=== PATIENT | female | born 1960 | race Two or more races ===

== ENCOUNTER 2023-10-03 11:22 | Outpatient (REF) | payer BC, SELFPAY | END 2023-10-03 11:23 | disposition home or self-care (01) | LOC: HO.CHCLNP 11:22 | PROVIDERS: Visit Provider Internal Medicine | DX: R35.0 Frequency of micturition (principal) | CPT/HCPCS: 87086 ==

== ENCOUNTER 2023-11-06 08:36 | Outpatient (REF) | payer BC, SELFPAY ==
[2023-11-06 15:06] LABS: Estimated Average Glucose 123 mg/dL; Hemoglobin A1c % 5.9 % (<6.0)
[2023-11-06 15:20] LABS: Cholesterol 129 mg/dL (<200); HDL Cholesterol 51 mg/dL (>40); LDL Cholesterol Calculated 62 mg/dL (<100); Triglycerides 80 mg/dL (<150)
== END 2023-11-06 08:37 | disposition home or self-care (01) ==
LOC: HO.CHCLDS 08:36
PROVIDERS: Visit Provider Pediatrics
DX: E78.5 Hyperlipidemia, unspecified (principal)
CPT/HCPCS: 36415; 80061; 82550; 83036

== ENCOUNTER 2025-03-12 09:17 | Outpatient (REF) | payer BC, SELFPAY ==
--- OUTSIDE RECORDS SUMMARY | 2025-03-12 09:22 | XMS_ITS | Encounter Summary ---
Author Organization [email or web address] Address [address] [place] [address] [address] [address] Care Team Providers Care Concessions Manager Name Role Phone Ely Travis MD Primary Care Provider Reason for Visit * Reason Onset Date Comments Nurse Triage 02/20/2023 Encounter Details Date Type Department Care Team ([facility] st Contact Info) Description 02/20/2023 Telephone [facility] [address] [place], [place] [id number] Ely Travis MD [address] [place] [address] Nurse Triage Social History Tobacco Use Types Packs/Day Years Used Date Smoking Tobacco: Former Cigarettes 0.3 11.5 S tarted: 2014 Passive Smoke Exposure: Past Smokeless Tobacco: Never Alcohol Use Standard Drinks/Week Comments Never 0 (1 standard drink = 0.6 oz pur e alcohol) Comments Unknown Sex and Gender Information Value Date Recorded Sex Assigned at Female 06/25/2022 10:39 AM EDT Legal Sex Female 10:39 AM EDT Gender Identity Female 06/25/2022 10:39 AM EDT Sexual Orientation Straight 06/25/2022 10 :39 AM EDT documented as of this encounter Miscellaneous Notes * Telephone Encounter - Magda Goddard RN - 02/20/2023 1:59 PM EDT Triage call Pt reports left knee swollen and painful. Neg for redness or warmth to touch. Pt reports this started 3 weeks ago. Pt is able to walk and sometimes has a limp Pt is taking tylenol and ibuprofen. Tylenol doesn't help the pain but, ibuprofen does. Pt does report ice and heat help as well. Apt with PCP 02/28/23 @ 315pm. Insurance is verified as active prior to booking. Protocol Used: Knee Pain (Adult) Protocol-Based Disposition: See in Office or Video Visit within 3 Days Video visit offer not recorded Positive Triage Questions: * Moderate pain (e.g., symptoms interfere with work or school, limping) and present > 3 days * Swollen knee joint (no fever or redness) * Patient wants to be seen * All higher-acuity triage questions were negative Care Advice Discussed: * Reassurance and Education - Knee Pain * Pain Medicines * Pain Medicines - Extra Notes and Warnings * Reasons To Call Back - Moderate pain (e.g., limping) lasts more than 3 days - Mild pain lasts more than 7 days - Signs of infection occur (e.g., spreading redness, warmth, fever) - You become worse * Use a Cold Pack for Pain * Use Heat on Area After 48 Hours * Telephone Encounter - Alissa Mckenzie - 02/20/2023 1:34 PM EDT Symptom: Knee Pain and swelling - (left) and left hand pinky swollen Outcome: Schedule an urgent appointment (within 1 hour) or talk to a nurse or provider soon Reason: Trouble walking The caller accepted this outcome documented in this encounter Plan of Treatment Not on file documented as of this encounter Visit Diagnoses Not on filedocumented in this encounter Additional Health Concerns Assessment Noted Time PHQ-9 Depression Total Score: 3 09/05/19 23 8:44 AM EST documented as of this encounter Care Teams Concessions Manager Relationship Specialty Start Date End Date Ely Travis MD [address] [place] [address] PCP - General Family Medicine 10/19/21 documented as of this encounter
--- OUTSIDE RECORDS SUMMARY | 2025-03-12 09:22 | XMS_ITS | Clinical Summary ---
Author Organization [facility] Address [address] [place] [address] Phone Care Team Providers Care Medical Manager Name Role Phone Oskar Travis MD Primary Care Provider [phone] Social History Tobacco Use Types Packs/Day Years Used Date Smoking Tobacco: Never Assessed Comments Unknown Sex and Gender Information Value Date Recorded Sex Assigned at Female 10/12/2024 9:15 AM EST Legal Sex Female 1:34 AM EST Gender Identity Female 10/12/2024 9:15 AM EST Sexual Orientation Straight 10/12/2024 9: 15 AM EST Plan of Treatment Health Maintenance Due Date Last Done Comments DTaP,Tdap,and Td Vaccines (1 - Tdap) 1981 Cervical Cancer Screening: P ap Smear 12/04/1983 Pneumococcal Vaccine: 50+ Years (1 of 1 - PCV) 2012 Colorectal Cancer Screening: Colonoscopy 07/29/2022 HIV Screening 07/29/2022 Hepatitis C Screening 07/29/2022 Social Influencers of Health Screening 07/29/2022 COVID-19 Vaccine (3 - 2023-2 5 season) 2024 06/23/2021, 06/02/2021 Depression Screening 08/26/2024 Influenza Vaccine (#1) 2025 Breast Cancer Screening 04/06/2026 04/06/20 24, 03/01/2023, 11/07/2021 Cholesterol Screening (Lipid Panel) 11/05/2028 11/06/2023 Osteoporosis Screening (Bone Density Screening) 11/09/2031 11/08/2021 RSV Immunization Adult Patients (1 - 1-dose 75+ series) 2037 Zoster Vaccines Completed 03/27/2022, 01/17/2022 HIB Vaccines Aged Out No longer eligi ble based on patient's age to complete this topic HPV Vaccines Aged Out No longer eligi ble based on patient's age to complete this topic Hepatitis A Vaccines Aged Out No long er eligible based on patient's age to complete this topic Hepatitis B Vaccines Aged Out No long er eligible based on patient's age to complete this topic IPV Vaccines Aged Out No longer eligi ble based on patient's age to complete this topic MMR Vaccines Aged Out No longer eligi ble based on patient's age to complete this topic Meningococcal ACWY Vaccine Aged Out N o longer eligible based on patient's age to complete this topic Meningococcal B Vaccine Aged Out No l onger eligible based on patient's age to complete this topic RSV Immunization Patients Under 20 months Aged Out No longer eligible b ased on patient's age to complete this topic Varicella Vaccines Aged Out No longer eligible based on patient's age to complete this topic Procedures Procedure Name Priority Date/Time Associated Diagnosis Comments [facility] SCREENING DIGITAL Routine 04/06/2024 12:35 PM EDT Encounter for screening mammogram for malignant neoplasm of breast [facility] DEXA AXIAL SKELETON Routine 11/08/2021 7:43 AM EDT Encounter for screening for osteoporosis from Last 3 Months or Most Recently Relevant to Health Maintenance Results * [facility] SCREENING DIGITAL (04/06/2024 12:35 PM EDT) Anatomical Region Laterality Modality Mammography 04/06/2024 10:3 1 AM EDT Narrative 04/06/2024 12:[address] [facility] Diagnostic Imaging Department [address] [place] [address] [id number] Patient: TAYO PALACIOS D.O.B./Age/Sex: 1960 - 63 - F Unit#: [id number] Location/Status: SPDIMAM/REG CLI Mnemonic/Ordering Site: [facility] Ordering Physician: OSKAR TRAVIS [facility] Screening Digital - 04/06/24 - 1107 Report Status:Signed EXAM: [facility] Screening Digital EXAM DATE AND TIME: 04/06/2024 11:07 AM HISTORY: Screening. Right breast biopsy in 1988, pathology benign. COMPARISON: 03/01/23, 11/07/21, 08/05/06 TECHNIQUE: Bilateral digital breast tomosynthesis was performed in the CC and MLO projections. Computer aided detection with [employer] 3D 3.1 was employed. TISSUE DENSITY: c. The breasts are heterogeneously dense, which may obscure small masses. FINDINGS: A circumscribed nodule is again seen in the anterior 9 to 10:00 position of the right breast, very close to the skin line. It has equivocally increased in size, now approximately 9 mm in diameter compared to 7 to 8 mm previously. No associated microcalcifications are seen. Targeted ultrasound is recommended for further assessment. No grouped microcalcifications or areas of architectural distortion are seen. The skin and vascularity are unremarkable. IMPRESSION: 1. Equivocal increase in size of a small nodule in the anterior right breast, for which targeted ultrasound is recommended. The patient will be called back. 2. Stable mammographic appearance of the left breast. No evidence of malignancy is seen. BI-RADS: Category 0: Incomplete - Need Additional Imaging Evaluation RECOMMENDATION(S): 1: Ultrasound follow-up RIGHT Dictating Physician: SERGIO TURNER MD Electronically Signed by: SERGIO TURNER MD Dic Date/Time: 04/06/24 1233 Sign date/Time: 04/06/24 1235 Procedure Note Sergio Turner MD - 06/10/2024 [facility] Diagnostic Imaging Department [address] [place] [id number] Patient: EDITH PALACIOSERIE /Age/Sex: 1960 - 63 - F Unit#: [id number] Location/Status: SPDIMAM/REG CLI Mnemonic/Ordering Site: [facility] Ordering Physician: OSKAR TRAVIS [facility] Screening Digital - 04/06/24 - 1107 Report Status:Signed EXAM: [facility] Screening Digital EXAM DATE AND TIME: 04/06/2024 11:07 AM HISTORY: Screening. Right breast biopsy in 1988, pathology benign. COMPARISON: 03/01/23, 11/07/21, 08/05/06 TECHNIQUE: Bilateral digital breast tomosynthesis was performed in the CCand MLO projections. Computer aided detection with [employer] 3D 3.1was employed. TISSUE DENSITY: c. The breasts are heterogeneously dense, which mayobscure small masses. FINDINGS: A circumscribed nodule is again seen in the anterior 9 to 10:00 positionof the right breast, very close to the skin line. It has equivocally increased insize, now approximately 9 mm in diameter compared to 7 to 8 mm previously. No associated microcalcifications are seen. Targeted ultrasound isrecommended for further assessment. No grouped microcalcifications or areas of architectural distortion areseen. The skin and vascularity are unremarkable. IMPRESSION: 1. Equivocal increase in size of a small nodule in the anterior rightbreast, for which targeted ultrasound is recommended. The patient will be calledback. 2. Stable mammographic appearance of the left breast. No evidence ofmalignancy is seen. BI-RADS: Category 0: Incomplete - Need Additional Imaging Evaluation RECOMMENDATION(S): 1: Ultrasound follow-up RIGHT Dictating Physician: SERGIO TURNER MD Electronically Signed by: SERGIO TURNER MD Dic Date/Time: 04/06/24 1233 Sign date/Time: 04/06/24 1235 us Oskar Travis MD IMG BI PROCEDURES Final Resul t * [facility] DEXA AXIAL SKELETON (11/08/2021 7:43 AM EDT) Anatomical Region Laterality Modality Mammography 11/07/2021 2:40 PM EDT Narrative 11/08/2021 7:[address] [facility] Diagnostic Imaging Department [address] [place] [address] Patient: PALACIOSTAYO /Age/Sex: 1960 - 60 - F Unit#: [id number] [facility] Ordering Physician: OSKAR TRAVIS [facility] Dexa Axial Skeleton - 11/07/21 - 2529 HISTORY: The patient is a 60-year-old postmenopausal female smoker with clinical concern for metabolic bone disease. FINDINGS: Dual energy x-ray absorptiometry of the lumbar spine and femurs is performed. The mean bone mineral density at L1-L4 is 0.863 gm/cm2 which is 73% of that of young normals and 86% of that of age matched controls. This yields a T-score of -2.6 and a Z-score of -1.2 which is diagnostic of osteoporosis. The mean bone mineral density of the femurs bilaterally is 0.763 gm/cm2 which is 76% of that of young normals and 88% of that of age matched controls. This yields a T-score of -1.9 and a Z-score of -0.8 which is diagnostic of osteopenia. IMPRESSION: 1. Osteoporosis. 2. FRAX analysis yields a 10-year probability of major osteoporotic fracture of 5.4% and a 10-year probability of hip fracture of 1.1%. Code 69921 Dictating Physician: MARYLOU VAN MD Electronically Signed by: MARYLOU VAN MD Dic Date/Time: 11/08/21741 Sign date/Time: 11/08/21742 Procedure Note Marylou Van MD - 08/15/2022 [facility] Diagnostic Imaging Department [address] [place] [address] Patient: TAYO PALACIOS /Age/Sex: 1960 - 60 - F Unit#: [id number] [facility] Ordering Physician: OSKAR TRAVIS [facility] Dexa Axial Skeleton - 11/07/21 - 0787 HISTORY: The patient is a 60-year-old postmenopausal female smoker with clinical concern for metabolic bone disease. FINDINGS: Dual energy x-ray absorptiometry of the lumbar spine and femursis performed. The mean bone mineral density at L1-L4 is 0.863 gm/cm2 which is73% of that of young normals and 86% of that of age matched controls. Thisyields a T-score of -2.6 and a Z-score of -1.2 which is diagnostic ofosteoporosis. The mean bone mineral density of the femurs bilaterally is 0.763 gm/cf5gjcpd is 76% of that of young normals and 88% of that of age matched controls.This yields a T-score of -1.9 and a Z-score of -0.8 which is diagnostic of osteopenia. IMPRESSION: 1. Osteoporosis. 2. FRAX analysis yields a 10-year probability of major osteoporoticfracture of 5.4% and a 10-year probability of hip fracture of 1.1%. Code 96545 Dictating Physician: MARYLOU VAN MD Electronically Signed by: MARYLOU VAN MD Dic Date/Time: 11/08/2142 Sign date/Time: 11/08/21742 Oskar Travis MD IMG BI PROCEDURES Final Resul t from Last 3 Months or Most Recently Relevant to [place] [phone] Care Teams Medical Manager Relationship Specialty Start Date End Date Oskar Travis MD [address] [place] [phone] PCP - General Internal Medicine 10/12/24
[2025-03-12 13:49] LABS: MANUAL DIFF FLAG NO
[2025-03-12 14:05] LABS: Hematocrit 41.9 % (37.0-47.0); Hemoglobin 14.3 g/dl (12.0-16.0); Imm Gran Abs Auto 0.01 X10*3/uL (0.00-0.03); Imm Gran Pct Auto 0.1 % (0.0-0.4); Lymphocytes Absolute Auto 2.9 X10*3/uL (1.2-4.9); Mean Corpuscular HGB Conc 34.1 g/dl (31.0-35.0); Mean Corpuscular Hemoglobin 32.8 pg (27.0-33.0); Mean Corpuscular Volume 96.1 fL (80.0-98.0); NRBC Abs Auto 0.000 X10*3/uL (0.0-0.012); NRBC Pct Auto 0.0 /100WBC (0.0-0.2); Platelet Count 219 X10*3/uL (160-400); Red Blood Count 4.36 X10*6/uL (4.20-5.50); White Blood Count 7.2 X10*3/uL (4.8-10.8)
[2025-03-12 14:21] LABS: Alanine Aminotransferase 20 U/L (0-31); Albumin Level 4.5 g/dL (3.5-5.0); Alkaline Phosphatase 64 U/L (39-117); Anion Gap 10 (12-20); Aspartate Amino Transferase 22 U/L (5-31); Blood Urea Nitrogen 13 mg/dL (9-16); Calcium 9.5 mg/dL (8.4-10.2); Carbon Dioxide 27 mmol/L (22-29); Chloride 110 mmol/L (96-108); Cholesterol 125 mg/dL (<200); Estimated Glomerular Filt Rate > 60; HDL Cholesterol 48 mg/dL (>40); Potassium 3.9 mmol/L (3.3-5.1); Sodium 143 mmol/L (135-145); Total Protein 6.7 g/dL (6.5-8.0); Triglycerides 87 mg/dL (<150)
[2025-03-12 14:47] LABS: Folate 11.6 ng/mL (> or = 4.0); Vitamin B12 542 pg/mL (200-900)
== END 2025-03-12 09:18 | disposition home or self-care (01) ==
LOC: HO.CHCLDS 09:17
PROVIDERS: Visit Provider Pediatrics
DX: R73.03 Prediabetes (principal); F32.0 Major depressive disorder, single episode, mild
CPT/HCPCS: 36415; 80048; 80061; 80076; 82306; 82607; 82746; 84443; 85025

== ENCOUNTER 2025-05-05 09:54 | Outpatient (REF) | payer BC, SELFPAY ==
--- OUTSIDE RECORDS SUMMARY | 2025-05-05 09:15 | XMS_ITS | Encounter Summary ---
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 Phone Ely Travis MD Primary Care Provider [phone] Reason for Referral * Consultation (Routine) - Pending Review Specialty Diagnoses / Procedures Referred By Alireza owens Referred To Contact Physical Therapy Diagnoses Benign paroxysmal positional vertigo, unspecified laterality Georgia Gardner MD [address] [place] [address] Phone: tel: fax: Referral ID Status Reason Start Date Expiration Date Visits Requested Visits Authorized [id number] Pending Review Specialty Services Required 05/05/2025 05/05/2026 1 1 Encounter Details Date Type Department Care Team ([facility] st Contact Info) Description 05/05/2025 9:15 AM EDT Office Visit [facility] [address] [place] [address] Georgia Gardner MD [address] [place] [address] Benign paroxysmal positional vertigo, unspecified laterality (Primary Dx); Acute sinusitis with symptoms > 10 days Social History Tobacco Use Types Packs/Day Years Used Date Smoking Tobacco: Every Day Cigarettes 0.5 11.7 Started: 2013 Passive Smoke Exposure: Current Smokeless Tobacco: Never Alcohol Use Standard Drinks/Week Comments Never 0 (1 standard drink = 0.6 oz pur e alcohol) Depression Answer Date Recorded Patient Health Questionnaire-9 Score 4 03/11/2025 Patient Health Questionnaire-9 Score 4 03/11/2025 Last PHQ-9: Questionnaire Data Not on file 0 03/11/2025 Housing Stability Answer Date Recorded What is your housing situation today? I have racquel faust 03/11/[address] you li ve. Do you have problems with any of the following? None of the above 03/11/2025 Food Insecurity Answer Date Recorded Within the past 12 months, y ou worried that your food would run out before you got money to buy more: Never True 03/11/2025 Within the past 12 months,th e food you bought just didn't last and you didn't have enough money to get more: Never True Transportation Answer Date Recorded In the past 12 months, has l ack of transportation kept you from medical appts, meetings, work or from getting things needed for daily living? No 03/11/2025 Utilities Answer Date Recorded In the past 12 months, has t he electric, gas, oil or water company threatened to shut off services in your home? No 03/11/2025 Depression Answer Date Recorded Patient Health Questionnaire-2 Score 2 03/11/2025 Internet Access Answer Date Recorded Internet Access Q1 Yes 03/11/2025 Internet Access Q2 Not on file 03/11/2025 Comments No Sex and Gender Information Value Date Recorded Sex Assigned at Female 06/25/2022 10:39 AM EDT Legal Sex Female 10:39 AM EDT Gender Identity Female 06/25/2022 10:39 AM EDT Sexual Orientation Straight 06/25/2022 10 :39 AM EDT documented as of this encounter Last Filed Vital Signs Vital Sign Reading Time Taken Comments Blood Pressure 138/69 05/05/2025 9:05 AM EDT Pulse 69 05/05/2025 9:05 AM EDT Temperature 36.6 C (97.8 F) 05/05/2025 9:05 AM EDT Respiratory Rate 20 05/05/2025 9:05 AM EDT Oxygen Saturation 98% 05/05/2025 9:05 AM EDT Inhaled Oxygen Concentration - - Weight 55.3 kg (122 lb) 05/05/2025 9:05 AM EDT Height 150.5 cm (4' 11.25 ) 05/05/2025 9:05 AM E DT Body Mass Index 24.43 05/05/2025 9:05 AM EDT documented in this encounter Progress Notes * Georgia Gardner MD - 05/05/2025 9:15 AM EDT LUCIO Saucedo is a 64 y.o. female who presents for No chief complaint on file.. HPI Note from triage reviewed: called pt to triage, spoke to pt. pt states several days duration of dizziness. pt reports has hadin the distant past and diagnosed with vertigo. pt had therapy and was given medication which eventually resolved the issue. pt denies significant illness symptoms but had a sinus infection a few weeks ago. pt denies fever, falls, vomiting, or other associated symptoms. given appt tomorrow with [facility]provider at 9:15 for exam. advised home care: rest, fluids, lie down, fall precautions, and call back as needed. pt understands and agrees with plan. insurance verified. The history is confirmed. Patient reports 2 days history of dizziness described as a sensation of room spinning when changing position in bed from ozyl-rn-cauo and when changing position from sittingto standing. This symptom last a few seconds to 1 minute. Had a similar episode in the past that was treated with physical therapy and a pill Mrs. Kassie Saucedo is also complaining of nasal congestion and facial pain that started at mid March more than 10 days ago. Treated with a course of ceftriaxone with partial improvement. Has noticed a recurrence of the symptoms described as the congestion facial pain and chills 5 days ago. Currently using Marian and Flonase without significant improvement. Problem List[1] Allergies[2] Medications Ordered Prior to Encounter[3] Review of Systems Constitutional: Negative for appetite change, chills and diaphoresis. HENT: Positive for congestion and sinus pressure. Negative for voice change. Eyes: Negative for pain and redness. Respiratory: Negative for cough and shortness of breath. Gastrointestinal: Negative for abdominal pain, anal bleeding and blood in stool. Musculoskeletal: Negative for back pain. Neurological: Positive for dizziness. OBJECTIVE Vitals: 05/05/25 0905 BP: 138/69 BP Location: Left arm Patient Position: Sitting BP Cuff Size: Adult Pulse: 69 Resp: 20 Temp: 97.8 ??F (36.6 ??C) TempSrc: Oral SpO2: 98% Weight: 122 lb (55.3 kg) Height: 4' 11.25 (1.505 m) Physical Exam Constitutional: General: She is not in acute distress. Appearance: Normal appearance. She is not ill-appearing, toxic-appearing or diaphoretic. Cardiovascular: Rate and Rhythm: Normal rate. Pulmonary: Effort: Pulmonary effort is normal. Neurological: General: No focal deficit present. Mental Status: She is alert. Comments: The Toxey-Hallpike maneuver triggered the dizziness on the right with horizontal nystagmus. Assessment/Plan Assessment/Plan Diagnoses and all orders for this visit: Benign paroxysmal positional vertigo, unspecified laterality Comments: The nature of the condition was discussed A handout of the Serena maneuver was printed and given to the patient Orders: - meclizine (Antivert) 12.5 MG tablet; Take 1 tablet (12.5 mg) by mouth if needed in the morning, at noon, and at bedtime for dizziness for up to 10 days. - CBC auto differential; Future - Basic Metabolic Panel; Future - Referral to Physical Therapy; Future Acute sinusitis with symptoms > 10 days Comments: Patient will be contacted with the results of the workup Advised to continue with Marian and Flonase as directed. Orders: - doxycycline (Vibra-Tabs) 100 MG tablet; Take 1 tablet (100 mg) by mouth 2 times daily for 10 days. Take with a full glass of water and do not lie down for at least 30 minutes after. - XR Paranasal Sinuess 3+ Views; Future - CBC auto differential; Future - Basic Metabolic Panel; Future [1] Patient Active Problem List Diagnosis Dyslipidemia Allergic rhinitis Prediabetes Age-related osteoporosis without current pathological fracture Depression, unspecified Upper respiratory tract infection GRIS (generalized anxiety disorder) Nasal congestion Chronic left-sided low back pain without sciatica Heel pain, chronic, right [2] Allergies Allergen Reactions Penicillin G [3] Current Outpatient Medications on File Prior to Visit Medication Sig Dispense Refill alendronate (Fosamax) 70 MG tablet Take 1 tablet (70 mg) by mouth every 7 (seven) days. Take in themorning with a full glass of water, on an empty stomach, and do not take anything else by mouth or lie down for the next 30 min. 12 tablet 3 atorvastatin (Lipitor) 20 MG tablet Take 1 tablet (20 mg) by mouth in the morning. 90 tablet 2 biotin 5 MG capsule Take 1 capsule (5 mg) by mouth Once per day. 30 capsule 11 Calcium Citrate-Vitamin D (RA Calcium Citrate Plus Vit D) 315-5 MG-MCG tablet Take 1 tablet by mouth in the morning. 90 tablet 3 fexofenadine (Marian) 180 MG tablet Take 1 tablet (180 mg) by mouth Once per day. 30 tablet 11 FLUoxetine (PROzac) 20 MG capsule Take 1 capsule (20 mg) by mouth in the morning. 30 capsule 5 hydrOXYzine pamoate (Vistaril) 25 MG capsule Take 1 capsule (25 mg) by mouth every 8 (eight) hours if needed for anxiety. 90 capsule 3 lidocaine (Lidoderm) 5 % patch Apply 1 patch topically in the morning. Remove & discard patch within 12 hours or as directed by MD. 30 patch 1 lidocaine-prilocaine (Emla) 2.5-2.5 % cream APPLY TO THE AFFECTED AREA(S) FOR ONE DOSE 30 g 3 nicotine (Nicoderm CQ) 21 MG/24HR patch Place 1 patch on the skin 1 (one) time each day at the sametime. 30 patch 1 No current facility-administered medications on file prior to visit. documented in this encounter Miscellaneous Notes * Patient Education Note - Georgia Gardner MD - 05/05/2025 1:35 PM EDT Images from the original note were not included. Patient Education Table of Contents How to Perform the Serena Maneuver To view videos and all your education online visit, [email or web address] or scan this QR code with your smartphone. Access to this content will in one year. How to Perform the Serena Maneuver The Serena maneuver is an exercise that relieves symptoms of vertigo. Vertigo is the feeling that you or your surroundings are moving when they are not. When you feel vertigo, you may feel like the room is spinning and may have trouble walking. The Serena maneuver is used for a type of vertigo causedby a calcium deposit in a part of the inner ear. The maneuver involves changing head positions to help the deposit move out of the area. You can do this maneuver at home whenever you have symptoms of vertigo. You can repeat it in 24 hours if your vertigo has not gone away. Even though the Serena maneuver may relieve your vertigo for a few weeks, it is possible that your symptoms will return. This maneuver relieves vertigo, but it does not relieve dizziness. What are the risks? If it is done correctly, the Serena maneuver is considered safe. Sometimes it can lead to dizziness or nausea that goes away after a short time. If you develop other symptoms?such as changes in vision, weakness, or numbness?stop doing the maneuver and call your health care provider. Supplies needed: A bed or table. A pillow. How to do the Serena maneuver 1. Sit on the edge of a bed or table with your back straight and your legs extended or hanging overthe edge of the bed or table. Turn your head long-term toward the affected ear or side as told by your health care provider. Lie backward quickly with your head turned until you are lying flat on your back. Your head should dangle (head-hanging position). You may want to position a pillow under your shoulders. Hold this position for at least 30 seconds. If you feel dizzy or have symptoms of vertigo, continueto hold the position until the symptoms stop. Turn your head to the opposite direction until your unaffected ear is facing down. Your head shouldcontinue to dangle. Hold this position for at least 30 seconds. If you feel dizzy or have symptoms of vertigo, continueto hold the position until the symptoms stop. Turn your whole body to the same side as your head so that you are positioned on your side. Your head will now be nearly facedown and no longer needs to dangle. Hold for at least 30 seconds. If you feel dizzy or have symptoms of vertigo, continue to hold the position until the symptoms stop. Sit back up. You can repeat the maneuver in 24 hours if your vertigo does not go away. Follow these instructions at home: For 24 hours after doing the Serena maneuver: Keep your head in an upright position. When lying down to sleep or rest, keep your head raised (elevated) with two or more pillows. Avoid excessive neck movements. Activity Do not drive or use machinery if you feel dizzy. After doing the Serena maneuver, return to your normal activities as told by your health care provider. Ask your health care provider what activities are safe for you. General instructions Drink enough fluid to keep your urine pale yellow. Do not drink alcohol. Take gyrr-wut-scbshxh and prescription medicines only as told by your health care provider. Keep all follow-up visits. This is important. Preventing vertigo symptoms Ask your health care provider if there is anything you should do at home to prevent vertigo. He or she may recommend that you: Keep your head elevated with two or more pillows while you sleep. Do not sleep on the side of your affected ear. Get up slowly from bed. Avoid sudden movements during the day. Avoid extreme head positions or movement, such as looking up or bending over. Contact a health care provider if: Your vertigo gets worse. You have other symptoms, including: ? Nausea. ? Vomiting. ? Headache. Get help right away if you: Have vision changes. Have a headache or neck pain that is severe or getting worse. Cannot stop vomiting. Have new numbness or weakness in any part of your body. These symptoms may represent a serious problem that is an emergency. Do not wait to see if the symptoms will go away. Get medical help right away. Call your local emergency services (911 in the [place] Do not drive yourself to the hospital. Summary Vertigo is the feeling that you or your surroundings are moving when they are not. The Serena maneuver is an exercise that relieves symptoms of vertigo. If the Serena maneuver is done correctly, it is considered safe. This information is not intended to replace advice given to you by your health care provider. Make sure you discuss any questions you have with your health care provider. Document Released: 2014-08-17 Document Updated: 2024-05-08 Document Reviewed: 2024-05-08 Elsevier Patient Education ? 2024 [employer] * Patient Education Note - Georgia Gardner MD - 05/05/2025 1:34 PM EDT Images from the original note were not included. Patient Education Table of Contents How to Perform the Serena Maneuver To view videos and all your education online visit, [email or web address] or scan this QR code with your smartphone. Access to this content will in one year. How to Perform the Serena Maneuver The Serena maneuver is an exercise that relieves symptoms of vertigo. Vertigo is the feeling that you or your surroundings are moving when they are not. When you feel vertigo, you may feel like the room is spinning and may have trouble walking. The Serena maneuver is used for a type of vertigo causedby a calcium deposit in a part of the inner ear. The maneuver involves changing head positions to help the deposit move out of the area. You can do this maneuver at home whenever you have symptoms of vertigo. You can repeat it in 24 hours if your vertigo has not gone away. Even though the Serena maneuver may relieve your vertigo for a few weeks, it is possible that your symptoms will return. This maneuver relieves vertigo, but it does not relieve dizziness. What are the risks? If it is done correctly, the Serena maneuver is considered safe. Sometimes it can lead to dizziness or nausea that goes away after a short time. If you develop other symptoms?such as changes in vision, weakness, or numbness?stop doing the maneuver and call your health care provider. Supplies needed: A bed or table. A pillow. How to do the Serena maneuver 1. Sit on the edge of a bed or table with your back straight and your legs extended or hanging overthe edge of the bed or table. Turn your head long-term toward the affected ear or side as told by your health care provider. Lie backward quickly with your head turned until you are lying flat on your back. Your head should dangle (head-hanging position). You may want to position a pillow under your shoulders. Hold this position for at least 30 seconds. If you feel dizzy or have symptoms of vertigo, continueto hold the position until the symptoms stop. Turn your head to the opposite direction until your unaffected ear is facing down. Your head shouldcontinue to dangle. Hold this position for at least 30 seconds. If you feel dizzy or have symptoms of vertigo, continueto hold the position until the symptoms stop. Turn your whole body to the same side as your head so that you are positioned on your side. Your head will now be nearly facedown and no longer needs to dangle. Hold for at least 30 seconds. If you feel dizzy or have symptoms of vertigo, continue to hold the position until the symptoms stop. Sit back up. You can repeat the maneuver in 24 hours if your vertigo does not go away. Follow these instructions at home: For 24 hours after doing the Serena maneuver: Keep your head in an upright position. When lying down to sleep or rest, keep your head raised (elevated) with two or more pillows. Avoid excessive neck movements. Activity Do not drive or use machinery if you feel dizzy. After doing the Serena maneuver, return to your normal activities as told by your health care provider. Ask your health care provider what activities are safe for you. General instructions Drink enough fluid to keep your urine pale yellow. Do not drink alcohol. Take ufrn-tnl-kwpueuj and prescription medicines only as told by your health care provider. Keep all follow-up visits. This is important. Preventing vertigo symptoms Ask your health care provider if there is anything you should do at home to prevent vertigo. He or she may recommend that you: Keep your head elevated with two or more pillows while you sleep. Do not sleep on the side of your affected ear. Get up slowly from bed. Avoid sudden movements during the day. Avoid extreme head positions or movement, such as looking up or bending over. Contact a health care provider if: Your vertigo gets worse. You have other symptoms, including: ? Nausea. ? Vomiting. ? Headache. Get help right away if you: Have vision changes. Have a headache or neck pain that is severe or getting worse. Cannot stop vomiting. Have new numbness or weakness in any part of your body. These symptoms may represent a serious problem that is an emergency. Do not wait to see if the symptoms will go away. Get medical help right away. Call your local emergency services (911 in the [place] Do not drive yourself to the hospital. Summary Vertigo is the feeling that you or your surroundings are moving when they are not. The Serena maneuver is an exercise that relieves symptoms of vertigo. If the Serena maneuver is done correctly, it is considered safe. This information is not intended to replace advice given to you by your health care provider. Make sure you discuss any questions you have with your health care provider. Document Released: 2014-08-17 Document Updated: 2024-05-08 Document Reviewed: 2024-05-08 [employer] Patient Education ? 2024 [employer]. * Patient Education Note - Georgia Gardner MD - 05/05/2025 1:33 PM EDT Images from the original note were not included. Patient Education Table of Contents How to Perform the Serena Maneuver To view videos and all your education online visit, [email or web address] [email or web address] or scan this QR code with your smartphone. Access to this content will in one year. How to Perform the Serena Maneuver The Serena maneuver is an exercise that relieves symptoms of vertigo. Vertigo is the feeling that you or your surroundings are moving when they are not. When you feel vertigo, you may feel like the room is spinning and may have trouble walking. The Serena maneuver is used for a type of vertigo causedby a calcium deposit in a part of the inner ear. The maneuver involves changing head positions to help the deposit move out of the area. You can do this maneuver at home whenever you have symptoms of vertigo. You can repeat it in 24 hours if your vertigo has not gone away. Even though the Serena maneuver may relieve your vertigo for a few weeks, it is possible that your symptoms will return. This maneuver relieves vertigo, but it does not relieve dizziness. What are the risks? If it is done correctly, the Serena maneuver is considered safe. Sometimes it can lead to dizziness or nausea that goes away after a short time. If you develop other symptoms?such as changes in vision, weakness, or numbness?stop doing the maneuver and call your health care provider. Supplies needed: A bed or table. A pillow. How to do the Serena maneuver 1. Sit on the edge of a bed or table with your back straight and your legs extended or hanging overthe edge of the bed or table. Turn your head long-term toward the affected ear or side as told by your health care provider. Lie backward quickly with your head turned until you are lying flat on your back. Your head should dangle (head-hanging position). You may want to position a pillow under your shoulders. Hold this position for at least 30 seconds. If you feel dizzy or have symptoms of vertigo, continueto hold the position until the symptoms stop. Turn your head to the opposite direction until your unaffected ear is facing down. Your head shouldcontinue to dangle. Hold this position for at least 30 seconds. If you feel dizzy or have symptoms of vertigo, continueto hold the position until the symptoms stop. Turn your whole body to the same side as your head so that you are positioned on your side. Your head will now be nearly facedown and no longer needs to dangle. Hold for at least 30 seconds. If you feel dizzy or have symptoms of vertigo, continue to hold the position until the symptoms stop. Sit back up. You can repeat the maneuver in 24 hours if your vertigo does not go away. Follow these instructions at home: For 24 hours after doing the Serena maneuver: Keep your head in an upright position. When lying down to sleep or rest, keep your head raised (elevated) with two or more pillows. Avoid excessive neck movements. Activity Do not drive or use machinery if you feel dizzy. After doing the Serena maneuver, return to your normal activities as told by your health care provider. Ask your health care provider what activities are safe for you. General instructions Drink enough fluid to keep your urine pale yellow. Do not drink alcohol. Take oylg-hzv-pmcifke and prescription medicines only as told by your health care provider. Keep all follow-up visits. This is important. Preventing vertigo symptoms Ask your health care provider if there is anything you should do at home to prevent vertigo. He or she may recommend that you: Keep your head elevated with two or more pillows while you sleep. Do not sleep on the side of your affected ear. Get up slowly from bed. Avoid sudden movements during the day. Avoid extreme head positions or movement, such as looking up or bending over. Contact a health care provider if: Your vertigo gets worse. You have other symptoms, including: ? Nausea. ? Vomiting. ? Headache. Get help right away if you: Have vision changes. Have a headache or neck pain that is severe or getting worse. Cannot stop vomiting. Have new numbness or weakness in any part of your body. These symptoms may represent a serious problem that is an emergency. Do not wait to see if the symptoms will go away. Get medical help right away. Call your local emergency services (911 in the [place] Do not drive yourself to the hospital. Summary Vertigo is the feeling that you or your surroundings are moving when they are not. The Serena maneuver is an exercise that relieves symptoms of vertigo. If the Serena maneuver is done correctly, it is considered safe. This information is not intended to replace advice given to you by your health care provider. Make sure you discuss any questions you have with your health care provider. Document Released: 2014-08-17 Document Updated: 2024-05-08 Document Reviewed: 2024-05-08 [employer] Patient Education ? 2024 [employer]. documented in this encounter Plan of Treatment Scheduled Orders Name Type Priority Associated Diagnoses Orde r Schedule XR Paranasal Sinuess 3+ Views Imaging Routine Acute sinusitis with symptoms > 10 days Expected: 05/05/2025, Expires: 05/05/2026 CBC auto differential Lab Routine Benign paroxysmal positional vertigo, unspecified laterality Acute sinusitis with symptoms > 10 days Expected: 05/05/2025 (Approximate), Expires: 05/05/2026 Basic Metabolic Panel Lab Routine Benign paroxysmal positional vertigo, unspecified laterality Acute sinusitis with symptoms > 10 days Expected: 05/05/2025 (Approximate), Expires: 05/05/2026 Scheduled Referrals Name Type Priority Associated Diagnoses Orde r Schedule Referral to Physical Therapy Outpatient Referral Routine Benign paroxysmal positional vertigo, unspecified laterality Expected: 05/05/2025 (Approximate), Expires: 05/05/2026 documented as of this encounter Visit Diagnoses Diagnosis Benign paroxysmal positional vertigo, unspecified laterality- Primary Acute sinusitis with symptoms > 10 days documented in this encounter Additional Health Concerns Assessment Noted Time PHQ-9 Depression Total Score: 4 03/11/20 25 10:08 AM EDT documented as of this encounter Care Teams Die Repair Machinist Relationship Specialty Start Date End Date Ely Travis MD [address] [place] [address] PCP - General Family Medicine 10/19/21 documented as of this encounter
--- OUTSIDE RECORDS SUMMARY | 2025-05-05 11:57 | XMS_ITS | Encounter Summary ---
Author Organization [employer] Address [address] [place] [address] [address] [place] [address] Care Team Providers Care Manager Gas Name Role Phone Ely Travis MD Primary Care Provider [phone] Encounter Details Date Type Department Care Team ([facility] st Contact Info) Description 04/10/2024 Orders Only [facility] [address] [place] [address] Provider, MD Krystal Social History Tobacco Use Types Packs/Day Years Used Date Smoking Tobacco: Every Day Cigarettes 0.3 11.7 Started: 2013 Passive Smoke Exposure: Current Smokeless Tobacco: Never Alcohol Use Standard Drinks/Week Comments Never 0 (1 standard drink = 0.6 oz pur e alcohol) Depression Answer Date Recorded Patient Health Questionnaire-9 Score 8 11/05/2023 Patient Health Questionnaire-9 Score 8 11/05/2023 Last PHQ-9: Questionnaire Data Not on file 0 11/05/2023 Depression Answer Date Recorded Patient Health Questionnaire-2 Score 3 11/05/2023 Comments No Sex and Gender Information Value Date Recorded Sex Assigned at Female 06/25/2022 10:39 AM EDT Legal Sex Female 10:39 AM EDT Gender Identity Female 06/25/2022 10:39 AM EDT Sexual Orientation Straight 06/25/2022 10 :39 AM EDT documented as of this encounter Plan of Treatment Not on file documented as of this encounter Procedures Procedure Name Priority Date/Time Associated Diagnosis Comments UNILAT BREAST US LIMITED Routine 04/09/2024 11:15 AM EDT documented in this encounter Results * UNILAT BREAST US LIMITED (04/09/2024 11:15 AM EDT) Anatomical Region Laterality Modality Breast Left Ultrasound us Historical Provider MD MADRID US PROCEDURES Final R esult documented in this encounter Visit Diagnoses Not on filedocumented in this encounter Additional Health Concerns Assessment Noted Time PHQ-9 Depression Total Score: 8 11/05/19 24 11:48 AM EDT documented as of this encounter Care Teams Manager Gas Relationship Specialty Start Date End Date Ely Travis MD [address] [place] [id number] PCP - General Family Medicine 10/19/21 documented as of this encounter
--- OUTSIDE RECORDS SUMMARY | 2025-05-05 11:57 | XMS_ITS | Encounter Summary ---
Author Organization [employer] Address [address] [facility] [address] [place] [address] Care Team Providers Care Tutoring Clinician Name Role Phone Ely Travis MD Primary Care Provider [phone] Reason for Visit * Reason Onset Date Comments Nurse Triage 05/04/2025 Encounter Details Date Type Department Care Team ([facility] st Contact Info) Description 05/04/2025 Telephone [facility] CHC MED & PEDS [address] [place], [place] [phone] Ely Travis MD [address] [place] [address] Nurse Triage Social History Tobacco Use Types [...] your housing situation today? I have racquel christianne 03/11/[address] you li [...] encounter Miscellaneous Notes * Telephone Encounter - Lis Walden RN - 05/04/2025 8:58 AM EDT called pt to triage, spoke to pt. pt states several days duration of dizziness. pt reports has had in the distant past and diagnosed with vertigo. pt had therapy and was given medication which eventually resolved the issue. pt denies significant illness symptoms but had a sinus infection a few weeks ago. pt denies fever, falls, vomiting, or other associated symptoms. given appt tomorrow with [facility] provider at 9:15 for exam. advised home care: rest, fluids, lie down, fall precautions, and call back as needed. pt understands and agrees with plan. insurance verified. Protocol Used: Dizziness (Adult) Protocol-Based Disposition: See in Office or Video Visit within 3 Days Positive Triage Question: * Mild dizziness (e.g., walking normally) and has NOT been evaluated by physician for this (Exception: Dizziness caused by heat exposure, sudden standing, or poor fluid intake.) * All higher-acuity triage questions were negative Care Advice Discussed: * Reassurance and Education - Dizziness From Not Drinking Enough Liquids * Drink Fluids * Lie Down and Rest * Cool Off * Prevention - Dizziness * Reasons To Call Back - After 2 hours of rest and fluids and you are still feeling dizzy - You pass out (faint) or are too weak to stand - You become worse * Sit Up Slowly Before Standing * Drink Fluids * Lie Down and Rest * Cool Off * Prevention - Dizziness * Telephone Encounter - Ishmael Hurtado - 05/04/2025 8:32 AM EDT Symptom: Dizziness Outcome: Schedule an appointment to be seen within 24 hours Reason: Caller denied all higher acuity questions The caller accepted this outcome. Contact pt at [phone] documented in this encounter Plan of Treatment Not on file documented as of this encounter Visit Diagnoses Not on filedocumented in this encounter Additional Health Concerns Assessment Noted Time PHQ-9 Depression Total Score: 4 03/11/20 25 10:08 AM EDT documented as of this encounter Care Teams Tutoring Clinician Relationship Specialty Start Date End Date Ely Travis MD [address] [place] [address] PCP - General Family Medicine 10/19/21 documented as of this encounter
--- OUTSIDE RECORDS SUMMARY | 2025-05-05 11:57 | XMS_ITS | Encounter Summary ---
Author Organization [employer] Address [address] [facility] [address] [place] [address] Care Team Providers Care Entry Level Management Name Role Phone Ely Travis MD Primary Care Provider [phone] Encounter Details Date Type Department Care Team (Latest Contact Info) Description 05/04/2025 Travel Social History Tobacco Use Types Packs/Day Years [...] documented as of this encounter Care Teams Entry Level Management Relationship Specialty Start Date End Date Ely Travis MD [address] [place] [address] PCP - General Family Medicine 10/19/21 documented as of this encounter
--- OUTSIDE RECORDS SUMMARY | 2025-05-05 11:57 | XMS_ITS | Encounter Summary ---
Author Organization [employer] Address [address] [place] [address] [address] [place] [address] Care Team Providers Care Sound Assistant Name Role Phone Ely Travis MD Primary Care Provider [phone] Encounter Details Date Type Department Care Team ([facility] st Contact Info) Description 04/08/2024 Orders Only [facility] [address] [place] [address] Provider, MD Krystal Social History Tobacco Use [...] Procedure Name Priority Date/Time Associated Diagnosis Comments BI MAMMOGRAM SCREENING BILATERAL Routine 04/06/2024 11:48 AM EDT documented in this encounter Results * BI Mammogram Screening Bilateral (04/06/2024 11:48 AM EDT) Anatomical Region Laterality Modality Breast Bilateral Mammography us Historical Provider MD MADRID BI PROCEDURES Final R esult documented in this encounter Visit Diagnoses Not on filedocumented in this encounter Additional Health Concerns Assessment Noted Time PHQ-9 Depression Total Score: 8 11/05/19 24 11:48 AM EDT documented as of this encounter Care Teams Sound Assistant Relationship Specialty Start Date End Date Ely Travis MD [address] [place] [phone] PCP - General Family Medicine 10/19/21 documented as of this encounter
--- OUTSIDE RECORDS SUMMARY | 2025-05-05 11:57 | XMS_ITS | Encounter Summary ---
Author Organization [employer] Address [address] [place] [address] Care Team Providers Care Business Improvement Manager Name Role Phone Ely Travis MD Primary Care Provider [phone] Reason for Visit * Reason Onset Date Comments Results 08/21/2022 Encounter Details Date Type Department Care Team ([facility] st Contact Info) Description 08/21/2022 Telephone [facility] CHC MED & PEDS [address] [place], [place] [phone] Ely Travis MD [address] [place] [address] Results Social History Tobacco Use Types Packs/Day Years Used Date Smoking Tobacco: Never Assessed Comments Unknown Sex and Gender Information Value Date Recorded Sex Assigned at Female 06/25/2022 10:39 AM EDT Legal Sex Female 10:39 AM EDT Gender Identity Female 06/25/2022 10:39 AM EDT Sexual Orientation Straight 06/25/2022 10 :39 AM EDT COVID-19 Exposure Response Date Recorded In the last 10 days, have yo u been in contact with someone who was confirmed or suspected to have Coronavirus/COVID-19? No / Unsure 08/06/2022 8:55 AM EST documented as of this encounter Miscellaneous Notes * Telephone Encounter - Lise Cummings - 08/21/2022 10:13 AM EST Tc from pt requesting lab results . documented in this encounter Plan of Treatment Not on file documented as of this encounter Visit Diagnoses Not on filedocumented in this encounter Care Teams Business Improvement Manager Relationship Specialty Start Date End Date Ely Travis MD [address] [place] [id number] PCP - General Family Medicine 10/19/21 documented as of this encounter
--- OUTSIDE RECORDS SUMMARY | 2025-05-05 11:57 | XMS_ITS | Encounter Summary ---
Author Organization [employer] Address [address] [facility] [place] [address] [address] Care Team Providers Care Associate Relations Specialist Name Role Phone Ely Travis MD Primary Care Provider [phone] Reason for Visit * Reason Onset Date Comments Nurse Triage 12/23/2023 Encounter Details Date Type Department Care Team ([facility] st Contact Info) Description 12/23/2023 Telephone [facility] MEDICINE [address] [place] [address] Ely Travis MD [address] [place] [id number] Nurse Triage Social History Tobacco Use Types Packs/Day Years Used Date Smoking Tobacco: Former Cigarettes 0.3 11.7 S tarted: 2014 Passive Smoke Exposure: Past [...] Telephone Encounter - Magda Goddard RN - 12/23/2023 3:54 PM EDT Triage call Pt reports getting up from sitting in an out door chair and feeling a pinch . Pt has been having left leg pain ever since, Ambulating with pain and limp. Pt has been using ice/heat, ibuprofen/tylenol with out relief. Pt denies numbness/tingling . Pt would like to see provider. Pt is advised to come to [facility] , open till 800pm tonight. Pt agrees with this disposition. Home care already im plemented. Insurance is verified as active. Protocol Used: Back Injury (Adult) Protocol-Based Disposition: See in Office or Video Visit Today Video visit not offered Positive Triage Question: * Patient wants to be seen * All higher-acuity triage questions were negative Care Advice Discussed: * Reassurance and Education - Bending or Twisting Injury (Strain, Sprain) * Use a Cold Pack for Pain, Swelling, or Bruising * Use Heat on Area After 48 Hours * Avoid Heavy Lifting and Sports * Rest vs. Movement * Reasons To Call Back - Severe pain lasts over 2 hours after pain medicine and ice - Swelling or bruise becomes over 4 inches (10 cm; more than size of palm). - Pain not improving after 3 days - Pain or swelling lasts over 7 days - You become worse * Telephone Encounter - Brendon Casanova - 12/23/2023 3:35 PM EDT Symptom: Back Injury Outcome: Schedule an urgent appointment (within 1 hour) or talk to a nurse or provider soon Reason: Weakness of the leg documented in this encounter Plan of Treatment Not on file documented as of this encounter Visit Diagnoses Not on filedocumented in this encounter Additional Health Concerns Assessment Noted Time PHQ-9 Depression Total Score: 8 11/05/19 24 11:48 AM EDT documented as of this encounter Care Teams Associate Relations Specialist Relationship Specialty Start Date End Date Ely Travis MD [address] [place] [address] PCP - General Family Medicine 10/19/21 documented as of this encounter
--- OUTSIDE RECORDS SUMMARY | 2025-05-05 11:57 | XMS_ITS | Encounter Summary ---
Author Organization [employer] Address [address] [facility] [address] [place] [address] Care Team Providers Care Weight Count Operator Name Role Phone Ely Travis MD Primary Care Provider [phone] Encounter Details Date Type Department Care Team (Latest Contact Info) Description 05/05/2025 Travel Social History Tobacco Use Types Packs/Day [...] documented as of this encounter Care Teams Weight Count Operator Relationship Specialty Start Date End Date Ely Travis MD [address] [place] [address] PCP - General Family Medicine 10/19/21 documented as of this encounter
--- OUTSIDE RECORDS SUMMARY | 2025-05-05 11:57 | XMS_ITS | Encounter Summary ---
Author Organization [employer] Address [address] [place] [address] [address] [place] [address] Care Team Providers Care Air Tank Assembler Name Role Phone Ely Travis MD Primary Care Provider Reason for Visit * Reason Onset Date Comments Nurse Triage 02/20/2023 Encounter Details Date Type Department Care Team ([facility] st Contact Info) Description 02/20/2023 Telephone [facility] MED & PEDS [address] [place], [place] [phone] Ely Travis MD [address] [place] [address] Nurse Triage Social History Tobacco Use Types [...] does report ice and heat help as well . Apt with PCP 02/28/23 @ 315pm. Insurance [...] documented as of this encounter Care Teams Air Tank Assembler Relationship Specialty Start Date End Date Ely Travis MD [address] [place] [address] PCP - General Family Medicine 10/19/21 documented as of this encounter
--- OUTSIDE RECORDS SUMMARY | 2025-05-05 11:57 | XMS_ITS | Encounter Summary ---
Author Organization [employer] Address [address] [place] [address] [address] [address] Care Team Providers Care Shackler Name Role Phone Ely Travis MD Primary Care Provider [phone] Reason for Visit * Reason Comments Med Refill Encounter Details Date Type Department Care Team ([facility] Contact Info) Description 10/26/2024 Refill C [facility]S [address] [place], [place] [phone] Ely Travis MD [address] [place] [address] Social History Tobacco Use Types Packs/Day Years [...] documented as of this encounter Care Teams Shackler Relationship Specialty Start Date End Date Ely Travis MD [address] [place] [address] PCP - General Family Medicine 10/19/21 documented as of this encounter
--- OUTSIDE RECORDS SUMMARY | 2025-05-05 11:57 | XMS_ITS | Encounter Summary ---
Author Organization [employer] Address [address] [place] [address] [address] [place] [address] Care Team Providers Care Armature Varnisher Name Role Phone Ely Travis MD Primary Care Provider [phone] Encounter Details Date Type Department Care Team ([facility] st Contact Info) Description 10/16/2023 Orders Only [facility] CH[facility] MED & PEDS [address] [place], [place] [phone] Georgia Gardner MD [address] [place] [address] Social History Tobacco Use Types Packs/Day Years Used Date Smoking Tobacco: Former Cigarettes 0.3 11.7 S tarted: 2014 Passive Smoke Exposure: Past Smokeless Tobacco: Never Alcohol Use Standard Drinks/Week Comments Never 0 (1 standard drink = 0.6 oz pur e alcohol) Depression Answer Date Recorded Patient Health Questionnaire-9 Score 20 04/19/2023 Depression Answer Date Recorded Patient Health Questionnaire-2 Score 6 04/19/2023 Comments No Sex and Gender Information Value [...] Assessment Noted Time PHQ-9 Depression Total Score: 20 023 1:26 PM EDT documented as of this encounter Care Teams Armature Varnisher Relationship Specialty Start Date End Date Ely Travis MD [address] [place] [address] PCP - General Family Medicine 10/19/21 documented as of this encounter
--- OUTSIDE RECORDS SUMMARY | 2025-05-05 11:57 | XMS_ITS | Encounter Summary ---
Author Organization [employer] Address [address] [facility] 7t [place] [address] Care Team Providers Care Wreath Machine Tender Name Role Phone Ely Travis MD Primary Care Provider [phone] Encounter Details Date Type Department Care Team ([facility] st Contact Info) Description 04/30/2025 Orders Only [facility] MED & PEDS [address] [place], [place] [id number] Provider, MD Krystal Social History Tobacco Use [...] Procedure Name Priority Date/Time Associated Diagnosis Comments DIABETES EYE EXAM Routine 04/29/2025 10:38 AM EDT documented in this encounter Results * Diabetes Eye Exam (04/29/2025 10:38 AM EDT) Historical Provider HEALTH MAINTENANCE Final Result documented in this encounter Visit Diagnoses Not on filedocumented in this encounter Additional Health Concerns Assessment Noted Time PHQ-9 Depression Total Score: 4 03/11/20 25 10:08 AM EDT documented as of this encounter Care Teams Wreath Machine Tender Relationship Specialty Start Date End Date Ely Travis MD [address] [place] [address] PCP - General Family Medicine 10/19/21 documented as of this encounter
--- OUTSIDE RECORDS SUMMARY | 2025-05-05 11:57 | XMS_ITS | Encounter Summary ---
Author Organization [employer] Address [address] [place] [address] 7[address] [place] [address] Care Team Providers Care Orchard Manager Name Role Phone Ely Travis MD Primary Care Provider [phone] Reason for Visit * Reason Comments Med Refill Encounter Details Date Type Department Care Team ([facility] st Contact Info) Description 02/02/2025 Refill C [facility] [address] [place] [address] Daja Knox MD [address] [place] [address] Social History Tobacco Use Types Packs/Day Years [...] documented as of this encounter Care Teams Orchard Manager Relationship Specialty Start Date End Date Ely Travis MD [address] [place] [address] PCP - General Family Medicine 10/19/21 documented as of this encounter
--- OUTSIDE RECORDS SUMMARY | 2025-05-05 11:57 | XMS_ITS | Encounter Summary ---
Author Organization [employer] Address [address] [place] [address] [address] [place] [address] Care Team Providers Care Cloud Systems Architect Name Role Phone Ely Travis MD Primary Care Provider [phone] Encounter Details Date Type Department Care Team ([facility] st Contact Info) Description 02/20/2024 Orders Only [facility] [address] [place] [address] Provider, MD Krystal Social History Tobacco Use [...] Procedure Name Priority Date/Time Associated Diagnosis Comments CT CHEST WO CONTRAST Routine 02/18/2024 8:38 AM EDT documented in this encounter Results * CT Chest w/o Contrast (02/18/2024 8:38 AM EDT) Anatomical Region Laterality Modality Body, Chest Computed Tomogra phy us Historical Provider MD MADRID CT PROCEDURES Final R esult documented in this encounter Visit Diagnoses Not on filedocumented in this encounter Additional Health Concerns Assessment Noted Time PHQ-9 Depression Total Score: 8 11/05/19 24 11:48 AM EDT documented as of this encounter Care Teams Cloud Systems Architect Relationship Specialty Start Date End Date Ely Travis MD [address] [place] [address] PCP - General Family Medicine 10/19/21 documented as of this encounter
--- OUTSIDE RECORDS SUMMARY | 2025-05-05 11:57 | XMS_ITS | Clinical Summary ---
Author Organization [employer] Address [address] [place] [address] 7 [place] [address] Care Team Providers Care Cemetery Workers Supervisor Name Role Phone Ely Travis MD Primary Care Provider [phone] Allergies Active Allergy Reactions Criticality Noted Date Comments Penicillin G 10/19/2021 Medications * This document contains information received from the source organization and may not represent a complete record from that organization. lidocaine (Lidoderm) 5 % patch Apply 1 patch topically in the morning. Remove & discard patch within 12 hours or as directed by MD. 30 patch 1 3 Active lidocaine-priloc leonie (Emla) 2.5-2.5 % cream APPLY TO THE AFFECTED AREA(S) FOR ONE DOSE 30 g 3 5 Active alendronate (Fosamax) 70 MG tablet Take 1 tablet (70 mg) by mouth every 7 (seven) days. Take in the morning with a full glass of water, on an empty stomach, and do not take anything else by mouth or lie down for the next 30 min. 12 tablet 3 5 Active nicotine (Nicoderm CQ) 21 MG/24HR patch Place 1 patch on the skin 1 (one) time each day at the same time. 30 patch 1 5 05/10/20 25 Active FLUoxetine (PROzac) 20 MG capsuleIndicatio ns:Current mild episode of major depressive disorder, unspecified whether recurrent (CMS/HCC) Take 1 capsule (20 mg) by mouth in the morning. 30 capsule 5 5 Active atorvastatin (Lipitor) 20 MG tabletIndication s:Dyslipidemia Take 1 tablet (20 mg) by mouth in the morning. 90 tablet 2 5 Active fexofenadine (Marian) 180 MG tabletIndication s:Seasonal allergic rhinitis due to other allergic trigger Take 1 tablet (180 mg) by mouth Once per day. 30 tablet 11 5 Active hydrOXYzine pamoate (Vistaril) 25 MG capsule Take 1 capsule (25 mg) by mouth every 8 (eight) hours if needed for anxiety. 90 capsule 3 5 Active doxycycline (Vibra-Tabs) 100 MG tabletIndication s:Acute sinusitis with symptoms > 10 days Take 1 tablet (100 mg) by mouth 2 times daily for 10 days. Take with a full glass of water and do not lie down for at least 30 minutes after. 20 tablet 5 05/15/20 25 Active meclizine (Antivert) 12.5 MG tabletIndication s:Benign paroxysmal positional vertigo, unspecified laterality Take 1 tablet (12.5 mg) by mouth if needed in the morning, at noon, and at bedtime for dizziness for up to 10 days. 30 tablet 5 05/15/20 25 Active Calcium Citrate-Vitamin D (RA Calcium Citrate Plus Vit D) 315-5 MG-MCG tabletIndication s:Age-related osteoporosis without current pathological fracture Take 1 tablet by mouth in the morning. 90 tablet 3 3 05/05/20 25 Discontin ued(Thera py completed ) biotin 5 MG capsuleIndicatio ns:Onychoschizia Take 1 capsule (5 mg) by mouth Once per day. 30 capsule 11 4 05/05/20 25 Discontin ued(Thera py completed ) Active Problems Problem Noted Date Diagnosed Date Heel pain, chronic, right 03/11/2025 Chronic left-sided low back pain without sciatic a 12/25/2023 Assessment & Plan (12/25/2023 4:44 PM EDT): Acute on chronic low back pain without red flags - wrote letter to extend time off work until 01/03/24, with option to return if she improves before then - continue NSAIDs, muscle relaxer, Tylenol prn - walk as tolerated - PT referral to [place] placed - consider returning to [facility] as she found that helpful previously GRIS (generalized anxiety disorder) 11/05/2023 Upper respiratory tract infection 01/10/2023 Assessment & Plan (01/10/2023 12:53 PM EDT): No improvement of symptoms, 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 Depression, unspecified 12/24/2022 Prediabetes 09/20/2022 Age-related osteoporosis wit hout current pathological fracture 09/20/2022 Dyslipidemia 10/19/2021 Allergic rhinitis 01/10/2021 Nasal congestion 01/10/2021 Resolved Problems Problem Noted Date Diagnosed Date Resolved Date Moderate anxiety 10/19/2021 11/05/2023 Encounters Date Type Department Care Team Description 05/05/2025 9:15 AM EDT Office Visit [facility] [address] [place] [address] Georgia Gardner MD Benign paroxysmal positional vertigo, unspecified laterality (Primary Dx); Acute sinusitis with symptoms > 10 days 05/05/2025 Travel 05/04/2025 Travel 05/04/2025 Telephone [facility] [address] [place] [address] Ely Travis MD Nurse Triage 04/30/2025 Orders Only [facility] [address] [place] [address] Krystal Aguilar MD 04/08/2025 Telephone [facility] [address] [place] [address] Ely Travis MD Nurse Triage 03/16/2025 Telephone [facility] [address] [place] [address] Ely Travis MD Med Refill 03/16/2025 Orders Only [facility] [address] [place] [address] Ely Travis MD 03/15/2025 Results Follow-Up [facility] [address] [place] [address] Sravani Cyr RN POCT Glucose, POCT HGB A1C, Basic Metabolic Panel, Fasting, Additional followed-up results: 6 03/11/2025 10:00 AM EDT Office Visit [facility] [address] [place] [address] Ely Travis MD Prediabetes (Primary Dx); Current mild episode of major depressive disorder, unspecified whether recurrent (CMS/HCC); Dyslipidemia; Age-related osteoporosis without current pathological fracture; Breast cancer screening by mammogram; Seasonal allergic rhinitis due to other allergic trigger; Encounter for immunization; Heel pain, chronic, right 03/11/2025 Travel 03/10/2025 Telephone [facility] [address] [place] [address] Ely Travis MD Chart Prep 02/02/2025 Refill [facility] [address] [place] [address] Daja Knox MD from Last 3 Months Immunizations Immunization Administration Dates Next Due Pneumococcal Conjugate PCV 20 03/11/2025 Zoster, Recombinant 03/27/2022,01/17/2022 Social History Tobacco Use Types Packs/Day Years Used Date Smoking Tobacco: Every Day Cigarettes 0.5 11.7 Started: 2013 Passive Smoke Exposure: Current Smokeless Tobacco: Never Tobacco Cessation:Ready to Q uit: Not Asked; Counseling Given: Not Answered Alcohol Use Standard Drinks/Week Comments Never 0 [...] Orientation Straight 06/25/2022 10 :39 AM EDT Last Filed Vital Signs Vital Sign Reading [...] Mass Index 24.43 05/05/2025 9:05 AM EDT Plan of Treatment Health Maintenance Due Date Last Done Comments CT Colonography 1962 Colonoscopy 1962 Colorectal Cancer Screening 1962 FIT DNA/Cologuard 1962 FIT 1962 FOBT 1962 HIV Screening 1962 Sigmoidoscopy 1962 DTaP/Tdap/Td Vaccines (1 - Tdap) 1981 COVID-19 Vaccine (3 - season) 2025 06/23/2021, 06/02/2021 Influenza Vaccine (#1) 2025 Alcohol/Substance Use Screening 03/11/2026 03/11/2025 Depression Screening 03/11/2026 03/11/2025, 03/11/20 Diabetes: Hemoglobin A1C 03/11/2026 025, 11/06/2023, 09/20/2022, Additional history exists SDOH Screening 03/11/2026 03/11/2025 Tobacco Screening 03/11/2026 03/11/2025 Disability Screening 05/04/2026 05/04/2025 Mammogram 10/12/2026 10/12/2024, 03/26, 03/17/2023, Additional history exists Cervical Cancer Screening 01/17/2027 HPV/Cotest 01/17/2027 01/17/2022 Pap Smear 01/17/2027 01/17/2022 Lipid Panel 03/12/2030 03/12/2025, 10/24, 09/06/2022 RSV Patients and Patients Aged 60 years or older (1 - 1-dose 75+ series) 2037 Zoster Vaccines Completed 03/27/2022, 01/17/2022 Hepatitis C Screening Completed 09/06/2022 Pneumococcal Vaccine: 50+ Years Completed 03/11/2025 HIB Vaccines Aged Out No longer eligi [...] patient's age to complete this topic Meningococcal Vaccine Aged Out No scottie haley eligible based on patient's age to complete this topic RSV under 20 months Aged Out No longe r eligible based on patient's age to complete this topic Rotavirus Vaccines Aged Out No longer eligible based on patient's age to complete this topic Procedures Procedure Name Priority Date/Time Associated Diagnosis Comments HM DIABETES EYE EXAM Routine 04/29/2025 10:38 AM EDT LIPID PANEL, STANDARD Routine 03/12/2025 9:19 AM EDT Prediabetes Current mild episode of major depressive disorder, unspecified whether recurrent (CMS/HCC) HEPATIC FUNCTION PANEL Routine 03/12/2025 9:19 AM EDT Prediabetes Current mild episode of major depressive disorder, unspecified whether recurrent (CMS/HCC) VITAMIN D,25-OH,TOTAL,IA Routine 03/12/2025 9:19 AM EDT Prediabetes Current mild episode of major depressive disorder, unspecified whether recurrent (CMS/HCC) VITAMIN B12/FOLATE, SERUM PANEL Routine 03/12/2025 9:19 AM EDT Prediabetes Current mild episode of major depressive disorder, unspecified whether recurrent (CMS/HCC) TSH W/REFLEX TO FT4 Routine 03/12/2025 9 :19 AM EDT Prediabetes Current mild episode of major depressive disorder, unspecified whether recurrent (CMS/HCC) CBC WITH AUTO DIFFERENTIAL Routine 03/12/2025 9:19 AM EDT Prediabetes Current mild episode of major depressive disorder, unspecified whether recurrent (CMS/HCC) BASIC METABOLIC PANEL, FASTING Routine 03/12/2025 9:19 AM EDT Prediabetes Current mild episode of major depressive disorder, unspecified whether recurrent (CMS/HCC) POCT GLUCOSE Routine 03/11/2025 10:11 AM EDT Prediabetes POCT GLYCATED HEMOGLOBIN, TOTAL Routine 03/11/2025 10:10 AM EDT Prediabetes BI US BREAST COMPLETE RIGHT Routine 10/12/2024 Abnormal mammogram of right breast HEPATITIS PANEL, GENERAL Routine 09/06/2022 8:15 AM EST Chronic fatigue Sleep apnea in adult Arthralgia of both elbows THINPREP IMAGING PAP AND HPV MRNA E6/E7 WITH REFLEX TO HPV 16,18/45 Routine 01/17/2022 12:15 PM EDT from Last 3 Months or Most Recently Relevant to Health Maintenance Results * Diabetes Eye Exam (04/29/2025 10:38 AM EDT) Historical Provider HEALTH MAINTENANCE Final Result * (ABNORMAL) Basic Metabolic Panel, Fasting (03/12/2025 9:19 AM EDT) Sodium 143 135 - 145 mmol/L [facility] Potassium 3.9 3.3 - 5.1 mmol/L [facility] Chloride 110(H) 96 - 108 mmol/L [facility] Carbon Dioxide 27 22 - 29 mmol/L [facility] Anion Gap 10(L) 12 - 20 [facility] Urea Nitrogen (BUN) 13 9 - 16 mg/dL [facility] Creatinine, Serum 0.63 0.5 - 1.4 mg/dL [facility] Estimated Glomerular Filt Rate >60 [facility] Comment:Chronic Kidney Disea se: Estimated GFR < 60 mL/min/1.74b6Deeogg Kidney Disease: Estimated GFR < 15 mL/min/1.73m2 Glucose Fasting 96 60 - 99 mg/dL [facility] Calcium 9.5 8.4 - 10.2 mg/dL [facility] Blood Venous blood specimen / Unknown 03/12/2025 9:19 AM EDT 03/12/2025 1:44 PM EDT Ely Travis MD LAB BLOOD ORDERABLES Final Re sult [facility] [address] [place] [address] [phone] * Vitamin D, 25-Hydroxy, Total, Immunoassay (03/12/2025 9:19 AM EDT) Vitamin D 25-OH Total 88.0 >30 ng/mL [facility] Comment: Health Based Reference Values*< 20 ng/mL Ogbmuvvav88-19 ng/mL Insufficient> 30 ng/mL Sufficient*Helena AVERY. N Engl J Med. 2007;357:266-280There is no well-established upper level of normal vitamin Dlevels. Some laboratories use 50 ng/mL as an upper limit ofnormal. However, toxicity is patient-dependent and may occurat any level. Careful correlation with the patient'spresentation is necessary and, if there is concern forvitamin D toxicity, treatment should be consideredirrespective of the serum level.Care must be taken in interpreting Vitamin D results fromdifferent laboratories and methodologies. Published datademonstrated that results from patients undergoinghemodialysis may show a negative bias when tested withvarious automated 25-OH vitamin D assays when compared toLC-MS/MS.When testing samples from patients whose predominant form ofVitamin D is Vitamin D2, such as patients receiving VitaminD2 supplementation, results that are subtherapeutic shouldbe confirmed with another method such as LC-MS/MS. Blood Venous blood specimen / Unknown 03/12/2025 9:19 AM EDT 03/12/2025 1:44 PM EDT us Ely Travis MD LAB BLOOD ORDERABLES Final Re sult [facility] [address] [place] [phone] * Vitamin B12/Folate, Serum Panel (03/12/2025 9:19 AM EDT) Vitamin B12 542 200 - 900 pg/mL [facility] Comment:NORMAL 200-900 PG/ML INDETERMINATE 160-199 PG/ML DEFICIENT < 160 PG/ML Folate 11.6 > or = 4.0 ng/mL [facility] Comment:Reference Values:> o r = 4.0 ng/mL< 4.0 ng/mL suggests folate deficiency Methotrexate, aminopterin and folinic acid(leucovorin) are chemotherapeutic agents whose molecularstructures are similar to folate; therefore, the Architectfolate assay cannot be used for patients using these drugs. Blood Venous blood specimen / Unknown 03/12/2025 9:19 AM EDT 03/12/2025 1:44 PM EDT Ely Travis MD LAB BLOOD ORDERABLES Final Re sult Performing Organization Address [facility] de Phone Number [facility] [address] [place] [phone] * TSH W/Reflex to FT4 (03/12/2025 9:19 AM EDT) Pathologist [facility] TSH reflex Free T4 1.22 0.32 - 4.0 uIU/mL [facility] Blood Venous blood specimen / Unknown 03/12/2025 9:19 AM EDT 03/12/2025 1:44 PM EDT Ely Travis MD LAB BLOOD ORDERABLES Final Re sult Performing Organization Address [facility] Phone Number [facility] [address] [place] [phone] * CBC auto differential (03/12/2025 9:19 AM EDT) [facility] White Blood Count 7.2 4.8 - 10.8 X10*3/uL [facility] Red Blood Count 4.36 4.20 - 5.50 X10*6/uL [facility] Hemoglobin 14.3 12.0 - 16.0 g/dl [facility] Hematocrit 41.9 37.0 - 47.0 % [facility] Mean Corpuscular Volume 96.1 80.0 - 98.0 fL [facility] Mean Corpuscular Hemoglobin 32.8 27.0 - 33.0 pg [facility] Mean Corpuscular HGB Conc 34.1 31.0 - 35.0 g/dl [facility] Red Cell Distribution Width 12.1 11.0 - 16.0 % [facility] Platelet Count 219 160 - 400 X10*3/uL [facility] Mean Platelet Volume 10.2 9.4 - 12.3 fL [facility] Neutrophils Percent Auto 51.9 45 - 73 % [facility] Imm Gran Pct Auto 0.1 0.0 - 0.4 % [facility] Lymphocytes Percent Auto 39.7 20 - 40 % [facility] Monocytes Percent Auto 6.1 2 - 11 % [facility] Eosinophils Percent Auto 1.4 0 - 4 % [facility] Basophils Percent Auto 0.8 0 - 2 % [facility] NRBC Pct Auto 0.0 0.0 - 0.2 /100WBC [facility] Neutrophils Absolute Auto 3.7 2.0 - 8.3 x10*3/uL [facility] Imm Gran Abs Auto 0.01 0.00 - 0.03 X10*3/uL [facility] Lymphocytes Absolute Auto 2.9 1.2 - 4.9 X10*3/uL [facility] Monocytes Absolute Auto 0.4 0.1 - 1.2 X10*3/uL [facility] Eosinophils Absolute Auto 0.1 0.0 - 0.4 X10*3/uL [facility] Basophils Absolute Auto 0.1 0.0 - 0.2 X10*3/uL [facility] NRBC Abs Auto 0.000 0.0 - 0.012 X10*3/uL [facility] Blood Venous blood specimen / Unknown 03/12/2025 9:19 AM EDT 03/12/2025 1:44 PM EDT us Ely Travis MD LAB BLOOD ORDERABLES Final Re sult [facility] [address] [place] [phone] * Hepatic Function Panel (03/12/2025 9:19 AM EDT) Bilirubin, Total 0.5 0.0 - 1.0 mg/dL [facility] Bilirubin, Direct 0.2 0.0 - 0.5 mg/dL [facility] Aspartate Amino Transferase 22 5 - 31 U/L [facility] Alanine Aminotransferase 20 0 - 31 U/L [facility] Total Protein 6.7 6.5 - 8.0 g/dL [facility] Albumin Level 4.5 3.5 - 5.0 g/dL [facility] Alkaline Phosphatase 64 39 - 117 U/L [facility] Blood Venous blood specimen / Unknown 03/12/2025 9:19 AM EDT 03/12/2025 1:44 PM EDT us Ely Travis MD LAB BLOOD ORDERABLES Final Re sult [facility] [address] [place] [phone] * Lipid Panel, Standard (03/12/2025 9:19 AM EDT) Triglycerides 87 <150 mg/dL [facility] Comment:Desirable Triglyceri de: less than 150 mg/dLBorderline High Triglyceride 150-199 mg/dLHigh Triglyceride: 200-499 mg/dLVery High Triglyceride: greater than or equal to 5OO mg/dL Cholesterol 125 <200 mg/dL [facility] Comment:Desirable Cholestero l: less than 200 mg/dLBorderline High Cholesterol: 200-239 mg/dLHigh Cholesterol: greater than 239 mg/dL LDL Cholesterol Calculated 60 <100 mg/dL [facility] Comment:Desirable LDL: less than 100 mg/dLNear Optimal/Above Optimal LDL: 110- 129 mg/dLBorderline High LDL: 130-159 mg/dLHigh LDL: 160-189 mg/dLVery High LDL: greater than or equal to 190 mg/dL HDL Cholesterol 48 >40 mg/dL [facility] Comment:Desirable HDL: great er than 40 mg/dL Note: This HDL assay may give artificially low results in patients with liver disease. Blood Venous blood specimen / Unknown 03/12/2025 9:19 AM EDT 03/12/2025 1:44 PM EDT us Ely Travis MD LAB BLOOD ORDERABLES Final Re sult [facility] [address] [place] [phone] [phone] * POCT Glucose (03/11/2025 10:11 AM EDT) Pathologist [facility] Glucose Blood, POC 123 60 - 200 mg/dL [employer] Lot # [id number] Lot# Expiration Date 103,025 Blood Capillary blood specimen / Unknown 03/11/2025 10:11 AM EDT us Ely Travis MD POINT OF CARE TEST ENTER/EDIT ORDERABLES Final Result * (ABNORMAL) POCT HGB A1C (03/11/2025 10:10 AM EDT) Pathologist [facility] Hemoglobin A1C 6.4(A) 4.0 - 5.7 % [employer] Lot # [id number] Lot# Expiration Date 31 Blood 03/11/2025 10:1 0 AM EDT us Ely Travis MD POINT OF CARE TEST ENTER/EDIT ORDERABLES Final Result * BI US Breast Complete Right (10/12/2024) Anatomical Region Laterality Modality Breast Right Ultrasound us Ely Travis MD IMG US PROCEDURES Final Resul t * (ABNORMAL) Hepatitis Panel, General (09/06/2022 8:15 AM EST) Pathologist [facility] Hepatitis A Antibody Total REACTIVE( A) NON-REACT KATIE [employer] [place] [employer] Comment: For additional information, please refer to http://education.Twelve/faq/CFG365 (This link is being provided for informational/ educational purposes only.) Hepatitis B Surface Antibody QL NON-REACT KATIE NON-REACT [facility] [employer] [facility] [employer] Hepatitis B Surface Ag NON-REACT KATIE NON-REACT KATIE [employer] [facility] Hepatitis B Core Antibody Total NON-REACT KATIE NON-REACT KATIE [employer] [place] [employer] Hepatitis C Antibody NON-REACT KATIE NON-REACT KATIE [employer] [place] [employer] Index <0.02 <1.00 [employer] [place] [employer] Comment: HCV antibody was non-reactive. There is no laboratory evidence of HCV infection. In most cases, no further action is required. However, if recent HCV exposure is suspected, a test for HCV RNA (test code 75814) is suggested. For additional information please refer to http://education.Twelve/faq/OYV69h7 (This link is being provided for informational/ educational purposes only.) 09/06/2022 8:15 AM EST 09/06/2022 8:16 AM EST Narrative [facility] - 09/07/2022 1:58 PM EST FASTING:YES FASTING: YES us Ely Travis MD LAB BLOOD ORDERABLES Final Re sult [address], [place] [phone] [employer] [place] [employer] [address] [place] [address], (Nl2) [place] [phone] * THINPREP TIS PAP AND HPV mRNA E6/E7 WITH REFLEX TO HPV 16,18/45 (01/17/2022 12:15 PM EDT) Clinical Information: None given [facility] COMMENT SEE COMMENT [facility] Comment: EXPLANATORY NOTE: The Pap is a screening test for cervical cancer. It is not a diagnostic test and is subject to false negative and false positive results. It is most reliable when a satisfactory sample, regularly obtained, is submitted with relevant clinical findings and history, and when the Pap result is evaluated along with historic and current clinical information. COMMENT: This Pap test has been evaluated with computer assisted technology. [facility] Drilling Field Specialist: SEE COMMENT [facility] Comment: SXA, CT(ASCP) CT screening location: [address] [address] HPV nRNA E6/E7 Not Detected Not Detected [facility] Comment: Methodology: Insulation Installer-Mediated Amplification This assay detects E6/E7 viral messenger RNA (mRNA) from 14 high-risk HPV types (16,18,31,33,35,39,45,51,52,56,58,59,66,68). The analytical performance characteristics of this assay have been determined by [employer]. The modifications have not been cleared or approved by the FDA. This assay has been validated pursuant to the CLIA regulations and is used for clinical purposes. For additional information, please refer to http://education.Twelve/faq/HGC012a7 (This link if provided for information/ educational purposes only.) Interpretation/Res ult: [facility] Comment: Negative for intraepithelial lesion or malignancy. Atrophic pattern; predominantly parabasal cells LMP: 50 YRS [facility] Prev. BX: NONE GIVEN [facility] Prev. PAP: NONE GIVEN [facility] SOURCE: Cervix [facility] Statement Of Adequacy: SATISFACTORY FOR EVALUATION [facility] 01/17/2022 12:1 5 PM EDT us Ely Travis MD LAB PATHOLOGY ORDERABLES Mara varner Result [facility] [address] from Last 3 Months or Most Recently Relevant to Health Maintenance Insurance [address] OUT OF STATE Care Teams Cemetery Workers Supervisor Relationship Specialty Start Date End Date Ely Travis MD [address] [place] [phone] PCP - General Family Medicine 10/19/21
--- OUTSIDE RECORDS SUMMARY | 2025-05-05 11:57 | XMS_ITS | Encounter Summary ---
Author Organization [employer] Address [address] [place] [address] [address] [address] Care Team Providers Care Ultrasound Sonographer Name Role Phone Ely Travis MD Primary Care Provider [phone] Reason for Visit * Reason Onset Date Comments Letter for School/Work 10/04/2023 Encounter Details Date Type Department Care Team ([facility] Contact Info) Description 10/04/2023 Telephone [facility] PEDS [address] [place], [place] [phone] Ely Travis MD [address] [place] [address] Letter for School/Work Social History Tobacco Use Types Packs/Day Years Used Date Smoking Tobacco: Former Cigarettes 0.3 11.7 S tarted: 2014 Passive Smoke Exposure: Past Smokeless Tobacco: Never Alcohol Use Standard Drinks/Week Comments Never 0 (1 standard drink = 0.6 oz pur e alcohol) Depression Answer Date Recorded Patient Health Questionnaire-9 Score 20 04/19/2023 Depression Answer Date Recorded Patient Health Questionnaire-2 Score 6 04/19/2023 Comments Unknown Sex and Gender Information Value Date Recorded Sex Assigned at Female 06/25/2022 10:39 AM EDT Legal Sex Female 10:39 AM EDT Gender Identity Female 06/25/2022 10:39 AM EDT Sexual Orientation Straight 06/25/2022 10 :39 AM EDT documented as of this encounter Miscellaneous Notes * Telephone Encounter - Helen Wasserman - 10/04/2023 8:51 AM EST Tc from pt requesting a letter of excuse for work today due to viral illness pt is having. Pt was triaged today (10/04) documented in this encounter Plan of Treatment Not on file documented as of this encounter Visit Diagnoses Not on filedocumented in this encounter Additional Health Concerns Assessment Noted Time PHQ-9 Depression Total Score: 20 023 1:26 PM EDT documented as of this encounter Care Teams Ultrasound Sonographer Relationship Specialty Start Date End Date Ely Travis MD [address] [place] [address] PCP - General Family Medicine 10/19/21 documented as of this encounter
[2025-05-05 14:26] LABS: MANUAL DIFF FLAG NO
[2025-05-05 14:33] LABS: Hematocrit 42.3 % (37.0-47.0); Hemoglobin 14.0 g/dl (12.0-16.0); Imm Gran Abs Auto 0.01 X10*3/uL (0.00-0.03); Imm Gran Pct Auto 0.2 % (0.0-0.4); Lymphocytes Absolute Auto 1.1 X10*3/uL (1.2-4.9); Mean Corpuscular HGB Conc 33.1 g/dl (31.0-35.0); Mean Corpuscular Hemoglobin 32.6 pg (27.0-33.0); Mean Corpuscular Volume 98.4 fL (80.0-98.0); NRBC Abs Auto 0.000 X10*3/uL (0.0-0.012); NRBC Pct Auto 0.0 /100WBC (0.0-0.2); Platelet Count 184 X10*3/uL (160-400); Red Blood Count 4.30 X10*6/uL (4.20-5.50); White Blood Count 5.7 X10*3/uL (4.8-10.8)
[2025-05-05 15:25] LABS: Anion Gap 11 (12-20); Blood Urea Nitrogen 9 mg/dL (9-16); Calcium 9.1 mg/dL (8.4-10.2); Carbon Dioxide 27 mmol/L (22-29); Chloride 110 mmol/L (96-108); Estimated Glomerular Filt Rate > 60; Potassium 3.8 mmol/L (3.3-5.1); Sodium 144 mmol/L (135-145)
== END 2025-05-05 09:55 | disposition home or self-care (01) ==
LOC: HO.CHCLDS 09:54
PROVIDERS: Visit Provider Internal Medicine
DX: H81.10 Benign paroxysmal vertigo, unspecified ear (principal); J01.90 Acute sinusitis, unspecified
CPT/HCPCS: 36415; 80048; 85025

== ENCOUNTER 2025-05-06 11:02 | Outpatient (REF) | payer BC, SELFPAY ==
--- OUTSIDE RECORDS SUMMARY | 2025-05-05 09:15 | XMS_ITS | Encounter Summary ---
Author Organization [employer] Address [address] [place] [address] [address], [place] [address] Care Team Providers Care Bookstore Clerk Name Role Phone Ely Travis MD Primary Care Provider [phone] Reason for Referral * Consultation (Routine) - Closed Specialty Diagnoses / Procedures Referred By Contac t Referred To Contact Physical Therapy Diagnoses Benign paroxysmal positional vertigo, unspecified laterality Georgia Gardner MD [address] [place] [address] Phone: tel: fax: [facility] Physical Therapy [place] [address] [place] [place] [address] Phone: tel: fax: Referral ID Status Reason Start Date Expiration Date V isits Requested Visits Authorized [id number] Closed Specialty Services Required 05/05/2025 05/05/2026 1 1 Encounter Details Date Type Department Care Team (Late st Contact Info) Description 05/05/2025 9:15 AM EDT Office Visit [facility] MED & PEDS [address] [place], [place] [phone] Georgia Gardner MD [address] [place] [address] Benign paroxysmal positional vertigo, unspecified laterality (Primary [...] other associated symptoms. [facility] at [facility] for exam. advised home care: rest, fluids, lie down, fall precautions, and call back as needed. pt understands and agrees with plan. insurance verified. The history is confirmed. Patient reports 2 days history of dizziness described as a sensation of room spinning when changing position in bed from [id number]-[id number] and when changing position from sittingto standing. [...] Mental Status: She is alert. Comments: The Beaver-Hallpike maneuver triggered the dizziness on the right [...] videos and all your education online visit, [email or web address] or scan this QR code with your [...] the bed or table. Turn your head chcf toward the affected ear or side as [...] pale yellow. Do not drink alcohol. Take kfuc-fcd-oacqnsv and prescription medicines only as told by [...] Reviewed: 2024-05-08 Elsevier Patient Education ? 2024 [employer] * Patient Education Note - Georgia Gardner MD - 05/05/2025 1:34 PM EDT Images from the original note were not included. Patient Education Table of Contents How to Perform the Serena Maneuver To view videos and all your education online visit, [email or web address] or scan this QR code with your [...] the bed or table. Turn your head chcf toward the affected ear or side as [...] pale yellow. Do not drink alcohol. Take csep-ssn-nifhgys and prescription medicines only as told by [...] 2014-08-17 Document Updated: 2024-05-08 Document Reviewed: 2024-05-08 [employer]ack Patient Education ? 2024 [employer]. * Patient Education Note - Georgia Gardner MD - 05/05/2025 1:33 PM EDT Images from the original note were not included. Patient Education Table of Contents How to Perform the Serena Maneuver To view videos and all your education online visit, [email or web address] or scan this QR code with your [...] the bed or table. Turn your head chcf toward the affected ear or side as [...] pale yellow. Do not drink alcohol. Take gayp-vgc-vbszgfu and prescription medicines only as told by [...] 2014-08-17 Document Updated: 2024-05-08 Document Reviewed: 2024-05-08 [employer]ack Patient Education ? 2024 [employer]. documented in this encounter Plan of Treatment Scheduled Referrals Name Type Priority Associated Diagnoses Orde r Schedule Referral to Physical Therapy Outpatient Referral Routine Benign paroxysmal positional vertigo, unspecified laterality Expected: 05/05/2025 (Approximate), Expires: 05/05/2026 documented as of this encounter Procedures Procedure Name Priority Date/Time Associated Diagnosis Comments CBC WITH AUTO DIFFERENTIAL Routine 05/05/2025 9:55 AM EDT Benign paroxysmal positional vertigo, unspecified laterality Acute sinusitis with symptoms > 10 days BASIC METABOLIC PANEL Routine 05/05/2025 9:55 AM EDT Benign paroxysmal positional vertigo, unspecified laterality Acute sinusitis with symptoms > 10 days XR PARANASAL SINUSES 3+ VIEWS Routine 05/05/2025 Acute sinusitis with symptoms > 10 days documented in this encounter Results * (ABNORMAL) Basic Metabolic Panel (05/05/2025 9:55 AM EDT) Sodium 144 135 - 145 mmol/L [facility] Potassium 3.8 3.3 - 5.1 mmol/L [facility] Chloride 110(H) 96 - 108 mmol/L [facility] Carbon Dioxide 27 22 - 29 mmol/L [facility] Anion Gap 11(L) 12 - 20 [facility] Urea Nitrogen (BUN) 9 9 - 16 mg/dL [facility] Creatinine, Serum 0.61 0.5 - 1.4 mg/dL [facility] Estimated Glomerular Filt Rate >60 [facility] Comment:Chronic Kidney Disea se: Estimated GFR < 60 mL/min/1.86w7Vwmkid Kidney Disease: Estimated GFR < 15 mL/min/1.73m2 Glucose 97 60 - 115 mg/dL [facility] Calcium 9.1 8.4 - 10.2 mg/dL [facility] Blood Venous blood specimen / Unknown 05/05/2025 9:55 AM EDT 05/05/2025 2:35 PM EDT us Georgia Gardner MD LAB BLOOD ORDERABLES Final Result [facility] [address] [place] [phone] * (ABNORMAL) CBC auto differential (05/05/2025 9:55 AM EDT) White Blood Count 5.7 4.8 - 10.8 X10*3/uL [facility] Red Blood Count 4.30 4.20 - 5.50 X10*6/uL [facility] Hemoglobin 14.0 12.0 - 16.0 g/dl [facility] Hematocrit 42.3 37.0 - 47.0 % [facility] Mean Corpuscular Volume 98.4(H) 80.0 - 98.0 fL [facility] Mean Corpuscular Hemoglobin 32.6 27.0 - 33.0 pg [facility] Mean Corpuscular HGB Conc 33.1 31.0 - 35.0 g/dl [facility] Red Cell Distribution Width 12.4 11.0 - 16.0 % [facility] Platelet Count 184 160 - 400 X10*3/uL [facility] Mean Platelet Volume 10.4 9.4 - 12.3 fL [facility] Neutrophils Percent Auto 68.6 45 - 73 % [facility] Imm Gran Pct Auto 0.2 0.0 - 0.4 % [facility] Lymphocytes Percent Auto 19.8(L) 20 - 40 % [facility] Monocytes Percent Auto 9.6 2 - 11 % [facility] Eosinophils Percent Auto 0.9 0 - 4 % [facility] Basophils Percent Auto 0.9 0 - 2 % [facility] NRBC Pct Auto 0.0 0.0 - 0.2 /100WBC [facility] Neutrophils Absolute Auto 3.9 2.0 - 8.3 x10*3/uL [facility] Imm Gran Abs Auto 0.01 0.00 - 0.03 X10*3/uL [facility] Lymphocytes Absolute Auto 1.1(L) 1.2 - 4.9 X10*3/uL [facility] Monocytes Absolute Auto 0.5 0.1 - 1.2 X10*3/uL [facility] Eosinophils Absolute Auto 0.1 0.0 - 0.4 X10*3/uL [facility] Basophils Absolute Auto 0.1 0.0 - 0.2 X10*3/uL [facility] NRBC Abs Auto 0.000 0.0 - 0.012 X10*3/uL [facility] Blood Venous blood specimen / Unknown 05/05/2025 9:55 AM EDT 05/05/2025 2:23 PM EDT us Georgia Gardner MD LAB BLOOD ORDERABLES Final Result [facility] [address] [place] [phone] * XR Paranasal Sinuess 3+ Views (05/05/2025) Anatomical Region Laterality Modality Head, Neck Radiographic Anita ging us Georgia Gardner MD IMG XR PROCEDURES Final Res ult documented in this encounter Visit Diagnoses Diagnosis Benign paroxysmal positional vertigo, unspecified laterality- Primary Acute sinusitis with symptoms > 10 days documented in this encounter Additional Health Concerns Assessment Noted Time PHQ-9 Depression Total Score: 4 03/11/20 25 10:08 AM EDT documented as of this encounter Care Teams Bookstore Clerk Relationship Specialty Start Date End Date Ely Travis MD [address] [place] [address] PCP - General Family Medicine 10/19/21 documented as of this encounter
--- OUTSIDE RECORDS SUMMARY | 2025-05-05 11:12 | XMS_ITS | Encounter Summary ---
Author Organization [facility] Address [address] [place] [address] Care Team Providers Care Speech And Drama Teacher Name Role Phone Ely Travis MD Primary Care Provider [phone] Encounter Details Date Type Department Care Team (Latest Contact Info) Description 05/05/2025 11:12 AM EDT - 05/05/2025 11:59 PM EDT Hospital Encounter [facility] Xray [address] [place] [phone] Acute sinusitis, unspecified Discharge Disposition: Home or Self Care Social History Tobacco Use Types Packs/Day Years Used Date Smoking Tobacco: Never Assessed Comments Unknown Sex and Gender Information Value Date Recorded Sex Assigned at Female 10/12/2024 9:15 AM EST Legal Sex Female 1:34 AM EST Gender Identity Female 10/12/2024 9:15 AM EST Sexual Orientation Straight 10/12/2024 9: 15 AM EST documented as of this encounter Discharge Disposition Disposition Code Departure Means Destination Home or Self Care documented in this encounter Plan of Treatment Upcoming Encounters Date Type Department Care Team (Late st Contact Info) Description 06/29/2025 2:00 PM EST Office Visit Orthopedic Surgery - [place] [address] [phone] Jean Carlos Byrne, TAZ [address] [address] documented as of this encounter Procedures Procedure Name Priority Date/Time Associated Diagnosis Comments XR PARANASAL SINUSES 3+ VIEWS Routine 05/05/2025 11:39 AM EDT Acute sinusitis, unspecified documented in this encounter Results * XR Paranasal Sinuses 3+ Views (05/05/2025 11:39 AM EDT) Anatomical Region Laterality Modality Head and Neck Radiographic Anita ging 05/05/2025 11:4 3 AM EDT Impressions 05/05/2025 11:44 AM EDT Normal radiographic examination of the paranasal sinuses. Code 95942 -------- FINAL REPORT -------- Dictated By: Ronan Van Dictated Date: 05/05/2025 11:43 ET Assigned Physician: Ronan Van Reviewed and Electronically Signed By: Ronan Van Signed Date: 05/05/2025 11:44 ET Workstation ID: [id number] Transcribed By: Self Edit Transcribed Date: 05/05/2025 11:43 ET Narrative 05/05/2025 11:44 AM EDT HISTORY: The patient is a 64-year-old female with clinical diagnosis of sinusitis. FINDINGS: Johnston, Vlil[place], lateral, and submental vertex views of the paranasal sinuses are obtained. The study demonstrates normal aeration of the maxillary, ethmoid, frontal, and sphenoid sinuses. There is no air-fluid level, bony erosion, mucoendosteal thickening, or soft tissue mass. Procedure Note Ronan Van MD - 05/05/2025 HISTORY: The patient is a 64-year-old female with clinical diagnosis ofsinusitis. FINDINGS: Johnston, Villafana, lateral, and submental vertex views of theparanasal sinuses are obtained. The study demonstrates normal aeration ofthe maxillary, ethmoid, frontal, and sphenoid sinuses. There is noair-fluid level, bony erosion, mucoendosteal thickening, or soft tissuemass. IMPRESSION: Normal radiographic examination of the paranasal sinuses. Code 97408 -------- FINAL REPORT -------- Dictated By: Ronan Van Dictated Date: 05/05/2025 11:43 ET Assigned Physician: Ronan Van Reviewed and Electronically Signed By: Ronan Van Signed Date: 05/05/2025 11:44 ET Workstation ID: [id number] Transcribed By: Self Edit Transcribed Date: 05/05/2025 11:43 ET us Georgia Gardner MD IMG XR PROCEDURES Final R esult documented in this encounter Visit Diagnoses Diagnosis Acute sinusitis, unspecified documented in this encounter Care Teams Speech And Drama Teacher Relationship Specialty Start Date End Date Ely Travis MD [address] [place] [phone] PCP - General Internal Medicine 10/12/24 documented as of this encounter
--- OUTSIDE RECORDS SUMMARY | 2025-05-06 09:16 | XMS_ITS | Encounter Summary ---
Author Organization [facility] Address [address] [place] [address] Care Team Providers Care Consultant Dietitian Name Role Phone Ely Travis MD Primary Care Provider [phone] Reason for Referral * Imaging (Routine) - Authorized Specialty Diagnoses / Procedures Referred By Contac t Referred To Contact Radiology Diagnoses Age-related osteoporosis without current pathological fracture Procedures BD Bone Density DXA Axial Skeleton Ely Travis MD [address] [place] [address] Phone: tel: fax: [facility] Referral ID Status Reason Start Date Expiration Date V isits Requested Visits Authorized [id number] Authorized 03/11/2025 03/11/2026 1 1 Reason for Visit * Imaging (Routine) - Authorized Specialty Diagnoses / Procedures Referred By Contac t Referred To Contact Radiology Diagnoses Age-related osteoporosis without current pathological fracture Procedures BD Bone Density DXA Axial Skeleton Ely Travis MD [address] [place] [address] Phone: tel: fax: [facility] Referral ID Status Reason Start Date Expiration Date V isits Requested Visits Authorized [id number] Authorized 03/11/2025 03/11/2026 1 1 Encounter Details Date Type Department Care Team (Latest Contact Info) Description 05/06/2025 9:16 AM EDT Hospital Encounter [facility] Bone Density [address] [place] [address] Age-related osteoporosis without current pathological fracture Social History Tobacco Use Types Packs/Day Years Used Date Smoking Tobacco: Never Assessed Comments No Sex and Gender Information Value Date Recorded Sex Assigned at Female 10/12/2024 9:15 AM EST Legal Sex Female 1:34 AM EST Gender Identity Female 10/12/2024 9:15 AM EST Sexual Orientation Straight 10/12/2024 9: 15 AM EST documented as of this encounter Plan of Treatment Upcoming Encounters Date Type Department Care Team (Late st Contact Info) Description 06/29/2025 2:00 PM EST Office Visit Orthopedic Surgery - [place] [address] [facility] [address] [place] [phone] Jean Carlos Byrne, TAZ 175 [facility] Mike [address] [place] [id number] documented as of this encounter Procedures Procedure Name Priority Date/Time Associated Diagnosis Comments BD BONE DENSITY DXA AXIAL SKELETON Routine 05/06/2025 9:52 AM EDT Age-related osteoporosis without current pathological fracture documented in this encounter Results * BD Bone Density DXA Axial Skeleton (05/06/2025 9:52 AM EDT) Anatomical Region Laterality Modality Wrist, Hip, L-spine Bone Densito metry 05/06/2025 11:4 3 AM EDT Impressions 05/06/2025 11:44 AM EDT 1. Osteopenia. There has been an increase of 3.1% in bone mineral density in the lumbar spine since the prior examination of 11/07/2021. There has been an increase of 7.4% in bone mineral density in the right femur and an increase of 5.2% in bone mineral density in the left femur. 2. FRAX analysis yields a 10-year probability of major osteoporotic fracture of 6.1% and a 10-year probability of hip fracture of 1.4%. Code 13101 -------- FINAL REPORT -------- Dictated By: Ronan Van Dictated Date: 05/06/2025 11:43 ET Assigned Physician: Ronan Van Reviewed and Electronically Signed By: Ronan Van Signed Date: 05/06/2025 11:44 ET Workstation ID: [id number] Transcribed By: Self Edit Transcribed Date: 05/06/2025 11:43 ET Narrative 05/06/2025 11:44 AM EDT HISTORY: The patient is a 64-year-old postmenopausal female smoker with clinical concern for metabolic bone disease. FINDINGS: Dual energy x-ray absorptiometry of the lumbar spine and femurs is performed. The mean bone mineral density at L1-L4 is 0.890 gm/cm2 which is 75% of that of young normals and 91% of that of age matched controls. This yields a T-score of -2.4 and a Z-score of -0.7 which is diagnostic of osteopenia. The mean bone mineral density of the femurs bilaterally is 0.811 gm/cm2 which is 80% of that of young normals and 96% of that of age matched controls. This yields a T-score of -1.6 and a Z-score of -0.3 which is diagnostic of osteopenia. The T-score of the right femoral neck is -2.0 and that of the left femoral neck is -2.1 which is diagnostic of osteopenia. Procedure Note Ronan Van MD - 05/06/2025 HISTORY: The patient is a 64-year-old postmenopausal female smoker withclinical concern for metabolic bone disease. FINDINGS: Dual energy x-ray absorptiometry of the lumbar spine and femursis performed. The mean bone mineral density at L1-L4 is 0.890 gm/cm2 whichis 75% of that of young normals and 91% of that of age matched controls.This yields a T-score of -2.4 and a Z-score of -0.7 which is diagnostic ofosteopenia. The mean bone mineral density of the femurs bilaterally is 0.811 gm/rq1juwoa is 80% of that of young normals and 96% of that of age matchedcontrols. This yields a T-score of -1.6 and a Z-score of -0.3 which isdiagnostic of osteopenia. The T- score of the right femoral neck is -2.0and that of the left femoral neck is -2.1 which is diagnostic ofosteopenia. IMPRESSION: 1. Osteopenia. There has been an increase of 3.1% in bone mineral densityin the lumbar spine since the prior examination of 11/07/2021. There hasbeen an increase of 7.4% in bone mineral density in the right femur and anincrease of 5.2% in bone mineral density in the left femur. 2. FRAX analysis yields a 10-year probability of major osteoporoticfracture of 6.1% and a 10-year probability of hip fracture of 1.4%. Code 17764 -------- FINAL REPORT -------- Dictated By: Ronan Van Dictated Date: 05/06/2025 11:43 ET Assigned Physician: Ronan Van Reviewed and Electronically Signed By: Ronan Van Signed Date: 05/06/2025 11:44 ET Workstation ID: [id number] Transcribed By: Self Edit Transcribed Date: 05/06/2025 11:43 ET Ely Travis MD IMG DXA PROCEDURES Final Resu lt documented in this encounter Visit Diagnoses Diagnosis Age-related osteoporosis without current pathological fracture documented in this encounter Care Teams Consultant Dietitian Relationship Specialty Start Date End Date Ely Travis MD [address] [place] [phone] PCP - General Internal Medicine 10/12/24 documented as of this encounter
--- OUTSIDE RECORDS SUMMARY | 2025-05-06 09:17 | XMS_ITS | Encounter Summary ---
Author Organization [facility] Address [address] [place] [address] Care Team Providers Care Rake Operator Name Role Phone Ely Travis MD Primary Care Provider [phone] Reason for Referral * Imaging (Routine) - Authorized Specialty Diagnoses / Procedures Referred By Alireza owens Referred To Contact Radiology Diagnoses Encounter for screening mammogram for malignant neoplasm of breast Procedures MG Mammo Digital Screening w Ely Andersen MD [address] [place] [address] Phone: tel: fax: [facility] Referral ID Status Reason Start Date Expiration Date V isits Requested Visits Authorized [id number] Authorized 03/11/2025 03/11/2026 1 1 Reason for Visit * Imaging (Routine) - Authorized Specialty Diagnoses / Procedures Referred By Alireza owens Referred To Contact Radiology Diagnoses Encounter for screening mammogram for malignant neoplasm of breast Procedures MG Mammo Digital Screening w Ely Andersen MD [address] [place] [address] Phone: tel: fax: [facility] Referral ID Status Reason Start Date Expiration Date V isits Requested Visits Authorized [id number] Authorized 03/11/2025 03/11/2026 1 1 Encounter Details Date Type Department Care Team (Latest Contact Info) Description 05/06/2025 9:17 AM EDT Hospital Encounter [facility] [address] [address] Encounter for screening mammogram for malignant neoplasm of breast Social History Tobacco Use Types Packs/Day Years Used Date Smoking Tobacco: Never Assessed Comments No Sex and Gender Information Value Date Recorded Sex Assigned at Female 10/12/2024 9:15 AM EST Legal Sex Female 1:34 AM EST Gender Identity Female 10/12/2024 9:15 AM EST Sexual Orientation Straight 10/12/2024 9: 15 AM EST documented as of this encounter Last Filed Vital Signs Vital Sign Reading Time Taken Comments Blood Pressure - - Pulse - - Temperature - - Respiratory Rate - - Oxygen Saturation - - Inhaled Oxygen Concentration - - Weight 55.3 kg (122 lb) 05/06/2025 9:53 AM EDT Height 149.9 cm (4' 11 ) 05/06/2025 9:53 AM EDT Body Mass Index 24.64 05/06/2025 9:53 AM EDT documented in this encounter Plan of Treatment Upcoming Encounters Date Type Department Care Team (Late st Contact Info) Description 06/29/2025 2:00 PM EST Office Visit Orthopedic Surgery - [place] [address] [address] Jean Carlos Byrne, TAZ [address] [address] documented as of this encounter Procedures Procedure Name Priority Date/Time Associated Diagnosis Comments MG MAMMO DIGITAL SCREENING W CHAITANYA BILAT Routine 05/06/2025 10:05 AM EDT Encounter for screening mammogram for malignant neoplasm of breast documented in this encounter Results * MG Mammo Digital Screening w Chaitanya bilat (05/06/2025 10:05 AM EDT) Anatomical Region Laterality Modality Breast Bilateral Mammography 05/06/2025 10:0 5 AM EDT Impressions 05/06/2025 10:12 AM EDT No mammographic evidence of malignancy. A negative mammogram in the presence of a clinically suspicious palpable abnormality does not preclude the possibility of malignancy or alter the indications for biopsy. PQRI CPT II 3342F Code 68833, 73435 PQRI 225 CPT II 7025F TISSUE DENSITY: The breasts are heterogeneously dense, which may obscure small masses. (BI-RADS category C) IMPRESSION: Benign. BI-RADS CATEGORY: 2 - BENIGN RECOMMENDATION: Screening bilateral mammogram is recommended in 1 year. Mammo Location: [facility], [address] [place] [id number] -------- FINAL REPORT -------- Dictated By: Ronan Van Dictated Date: 05/06/2025 10:05 ET Assigned Physician: Ronan Van Reviewed and Electronically Signed By: Ronan Van Signed Date: 05/06/2025 10:12 ET Workstation ID: [id number] Transcribed By: Self Edit Transcribed Date: 05/06/2025 10:05 ET Narrative 05/06/2025 10:12 AM EDT CLINICAL: The patient is a 64 years Female presenting for routine screening mammography. COMPARISON: Most recently 04/06/2024 and most remotely 11/07/2021. TECHNIQUE: Full-field digital mammography of the breasts bilaterally consisting of tomosynthesis in MLO and CC projection is performed in the [employer]ase 2000-D unit. Computer aided detection utilizing the [employer] system was utilized. FINDINGS: The breasts are again seen to be composed of a combination of fatty and moderately dense fibroglandular elements. A 9 mm diameter lobulated nodular density anteriorly in the upper outer quadrant of the right breast just beneath the skin line is stable. This was demonstrated to represent microcystic change on ultrasound examination performed 04/09/2024 and 10/12/2024, is stable. There is no suspicious cluster of microcalcifications, suspicious mass, or area of architectural distortion. There is no skin thickening or nipple retraction. Procedure Note Ronan Van MD - 05/06/2025 CLINICAL: The patient is a 64 years Female presenting for routinescreening mammography. COMPARISON: Most recently 04/06/2024 and most remotely 11/07/2021. TECHNIQUE: Full-field digital mammography of the breasts bilaterallyconsisting of tomosynthesis in MLO and CC projection is performed in theZase 2000-D unit. Computer aided detection utilizing the [employer] was utilized. FINDINGS: The breasts are again seen to be composed of a combination offatty and moderately dense fibroglandular elements. A 9 mm diameterlobulated nodular density anteriorly in the upper outer quadrant of theright breast just beneath the skin line is stable. This was demonstratedto represent microcystic change on ultrasound examination performed04/09/2024 and 10/12/2024, is stable. There is no suspicious cluster ofmicrocalcifications, suspicious mass, or area of architectural distortion.There is no skin thickening or nipple retraction. IMPRESSION: No mammographic evidence of malignancy. A negative mammogram in the presence of a clinically suspicious palpableabnormality does not preclude the possibility of malignancy or alter theindications for biopsy. PQRI CPT II 3342F Code 22853, 04467 PQRI 225 CPT II 7025F TISSUE DENSITY: The breasts are heterogeneously dense, which may obscuresmall masses. (BI-RADS category C) IMPRESSION: Benign. BI-RADS CATEGORY: 2 - BENIGN RECOMMENDATION: Screening bilateral mammogram is recommended in 1 year. Mammo Location: [facility], [address] [place] [address] -------- FINAL REPORT -------- Dictated By: Ronan Van Dictated Date: 05/06/2025 10:05 ET Assigned Physician: Ronan Van Reviewed and Electronically Signed By: Ronan Van Signed Date: 05/06/2025 10:12 ET Workstation ID: [id number] Transcribed By: Self Edit Transcribed Date: 05/06/2025 10:05 ET us Ely Travis MD IMG BI PROCEDURES Final Resul t documented in this encounter Visit Diagnoses Diagnosis Encounter for screening mammogram for malignant neoplasm of breast documented in this encounter Care Teams Rake Operator Relationship Specialty Start Date End Date Ely Travis MD [address] [place] [phone] PCP - General Internal Medicine 10/12/24 documented as of this encounter
--- OUTSIDE RECORDS SUMMARY | 2025-05-06 15:21 | XMS_ITS | Encounter Summary ---
Author Organization [employer] Address [address] [facility] [address] [place] [address] Care Team Providers Care Nursing Techn Name Role Phone Ely Travis MD Primary Care Provider [phone] Encounter Details Date Type Department Care Team ([facility] Contact Info) Description 05/05/2025 Results Follow-Up [facility] CH[facility] MED & PEDS [address] [place], [place] [phone] Georgia Gardner MD [address] [place] [address] CBC auto differential, Basic Metabolic Panel Social History Tobacco Use Types Packs/Day Years [...] encounter Miscellaneous Notes * Telephone Encounter - Rena Briggs RN - 05/06/2025 9:12 AM EDT TC placed to pt to discuss the message below pt will come to the lab to have B12 and folic acid levels drawn, Pt states she does not drink alcohol and asked about a referral for her vertigo. Referralfor PT was placed yesterday and pt states that is what she was referring to ----- Message from Georgia Gardner MD sent at 05/05/2025 4:37 PM EDT ----- Please call to inform Mrs. Saucedo that her blood test is generally acceptable except for a mild microcytosis which are often associated with either vitamin B12 or folic acid deficiency and sometimes with excessive use of alcohol. I will order a vitamin B12 and folic acid level. ----- Message ----- From: Interface, Lab Results In Sent: 05/05/2025 2:34 PM EDT To: Georgia Gardner MD documented in this encounter Plan of Treatment Scheduled Orders Name Type Priority Associated Diagnoses Orde r Schedule Vitamin B12/Folate, Serum Panel Lab Routine Macrocytosis Expected: 05/05/2025, Expires: 05/05/2026 documented as of this encounter Visit Diagnoses Diagnosis Macrocytosis- Primary Other specified diseases of blood and blood-forming organs documented in this encounter Additional Health Concerns Assessment Noted Time PHQ-9 Depression Total Score: 4 03/11/20 25 10:08 AM EDT documented as of this encounter Care Teams Nursing Techn Relationship Specialty Start Date End Date Ely Travis MD [address] [place] [address] PCP - General Family Medicine 10/19/21 documented as of this encounter
--- OUTSIDE RECORDS SUMMARY | 2025-05-06 15:21 | XMS_ITS | Encounter Summary ---
Author Organization [employer] Address [address] [place] [address] [address] [place] [address] Care Team Providers Care Solderer Name Role Phone Ely Travis MD Primary Care Provider [phone] Encounter Details Date Type Department Care Team ([facility] st Contact Info) Description 02/20/2024 Orders Only [facility] [address] [place] [address] Provider, MD Krystal Social History Tobacco Use [...] documented as of this encounter Care Teams Solderer Relationship Specialty Start Date End Date Ely Travis MD [address] [place] [address] PCP - General Family Medicine 10/19/21 documented as of this encounter
--- OUTSIDE RECORDS SUMMARY | 2025-05-06 15:21 | XMS_ITS | Clinical Summary ---
Author Organization [facility] Address [address] [place] [address] Phone Care Team Providers Care Industrial Registered Nurse Name Role Phone Ely Travis MD Primary Care Provider [phone] Encounters Date Type Department Care Team Description 05/06/2025 9:17 AM EDT Hospital [facility]counter [facility] [address] [address] Encounter for screening mammogram for malignant neoplasm of breast 05/06/2025 9:16 AM EDT Hospital Encounter [facility] Bone Density [address] [place] [address] Age-related osteoporosis without current pathological fracture 05/05/2025 11:12 AM EDT - 05/05/2025 11:59 PM EDT Hospital Encounter [facility] Xray [address] [place] [address] Acute sinusitis, unspecified Discharge Disposition: Home or Self Care from Last 3 Months Social History Tobacco Use Types Packs/Day Years Used Date Smoking Tobacco: Never Assessed Comments No Sex and Gender Information Value Date Recorded Sex Assigned at Female 10/12/2024 9:15 AM EST Legal Sex Female 1:34 AM EST Gender Identity Female 10/12/2024 9:15 AM EST Sexual Orientation Straight 10/12/2024 9: 15 AM EST Obstetrics History Para Term AB IAB SAB Ectopic Multiple Livin g Live Births 4 Last Filed Vital Signs Vital Sign Reading Time Taken Comments Blood Pressure - - Pulse - - Temperature - - Respiratory Rate - - Oxygen Saturation - - Inhaled Oxygen Concentration - - Weight 55.3 kg (122 lb) 05/06/2025 9:53 AM EDT Height 149.9 cm (4' 11 ) 05/06/2025 9:53 AM EDT Body Mass Index 24.64 05/06/2025 9:53 AM EDT Plan of Treatment Upcoming Encounters Date Type Department Care Team (Late st Contact Info) Description 06/29/2025 2:00 PM EST Office Visit Orthopedic Surgery - [place] [address] [facility] [address] [place] [id number] Jean Carlos Byrne, DPDanette [address] [facility] [address] [place] [address] Health Maintenance Due Date Last Done Comments DTaP,Tdap,and Td Vaccines (1 - Tdap) 1981 Cervical Cancer Screening: Pap Smear 12/04/1983 Colorectal Cancer Screening: Colonoscopy 07/29/2022 HIV Screening 07/29/2022 Hepatitis C Screening 07/29/2022 Social Influencers of Health Screening 07/29/2022 Depression Screening 08/26/2024 COVID-19 Vaccine ( season) 2025 06/23/2021, 06/02/2021 Influenza Vaccine (#1) 2025 Breast Cancer Screening 05/06/2027 05/06/20, 04/06/2024, 03/01/2023, Additional history exists Cholesterol Screening (Lipid Panel) 03/12/2030 03/12/2025, 11/06/2023 Osteoporosis Screening (Bone Density Screening) 11/09/2031 05/06/2025, 11/08/2021 RSV Immunization Adult Patients (1 - 1-dose 75+ series) 2037 Zoster Vaccines Completed 03/27/2022, 01/17/2022 Pneumococcal Vaccine: 50+ Years Completed 03/11/2025 HIB [...] 20 months Aged Out No longer eligible based on patient's age to complete this topic Varicella Vaccines Aged Out No longer eligible based on patient's age to complete this topic Procedures Procedure Name Priority Date/Time Associated Diagnosis Comments MG MAMMO DIGITAL SCREENING W CHAITANYA BILAT Routine 05/06/2025 10:05 AM EDT Encounter for screening mammogram for malignant neoplasm of breast BD BONE DENSITY DXA AXIAL SKELETON Routine 05/06/2025 9:52 AM EDT Age-related osteoporosis without current pathological fracture XR PARANASAL SINUSES 3+ VIEWS Routine 05/05/2025 11:39 AM EDT Acute sinusitis, unspecified from Last 3 Months Results * MG Mammo Digital Screening w [...] for biopsy. PQRI CPT II 3342F Code 59251, 36561 PQRI 225 CPT II 7025F TISSUE DENSITY: The breasts are heterogeneously dense, which may obscure small masses. (BI-RADS category C) IMPRESSION: Benign. BI-RADS CATEGORY: 2 - BENIGN RECOMMENDATION: Screening bilateral mammogram is recommended in 1 year. Mammo Location: [facility], [address] [place] [id number] -------- FINAL REPORT -------- Dictated By: Ronan Van Dictated Date: 05/06/2025 10:05 ET Assigned Physician: Ronan Van Reviewed and Electronically Signed By: Ronan Van Signed Date: 05/06/2025 10:12 ET Workstation ID: [id number] Transcribed By: Self Edit Transcribed Date: 05/06/2025 10:05 ET Narrative 05/06/2025 10:12 AM EDT CLINICAL: The patient is a 64 years Female presenting for routine screening mammography. COMPARISON: Most recently 04/06/2024 and most remotely 11/07/2021. TECHNIQUE: Full-field digital mammography of the breasts bilaterally consisting of tomosynthesis in MLO and CC projection is performed in the Zendrivee 2000-D unit. Computer aided detection utilizing the iCAD system was utilized. FINDINGS: The breasts are [...] MLO and CC projection is performed in theBeatSwitchographe 2000-D unit. Computer aided detection utilizing the iCADsystem was utilized. FINDINGS: The breasts are again [...] for biopsy. PQRI CPT II 3342F Code 64390, 58178 PQRI 225 CPT II 7025F TISSUE DENSITY: The breasts are heterogeneously dense, which may obscuresmall masses. (BI-RADS category C) IMPRESSION: Benign. BI-RADS CATEGORY: 2 - BENIGN RECOMMENDATION: Screening bilateral mammogram is recommended in 1 year. Mammo Location: [facility], [address] [place] [address] -------- FINAL REPORT -------- Dictated By: Ronan Van Dictated Date: 05/06/2025 10:05 ET Assigned Physician: Ronan Van Reviewed and Electronically Signed By: Ronan Van Signed Date: 05/06/2025 10:12 ET Workstation ID: [id number] Transcribed By: Self Edit Transcribed Date: 05/06/2025 10:05 ET Ely Travis MD IMG BI PROCEDURES Final Resul t * BD Bone Density DXA Axial Skeleton [...] probability of hip fracture of 1.4%. Code 65007 -------- FINAL REPORT -------- Dictated By: Ronan Van Dictated Date: 05/06/2025 11:43 ET Assigned Physician: Ronan Van Reviewed and Electronically Signed By: Ronan Van Signed Date: 05/06/2025 11:44 ET Workstation ID: [id number] Transcribed By: Self Edit Transcribed Date: 05/06/2025 [...] is diagnostic of osteopenia. Procedure Note Ronan aVn MD - 05/06/2025 HISTORY: The patient is [...] density of the femurs bilaterally is 0.811 gm/yl1ktjol is 80% of that of young normals [...] probability of hip fracture of 1.4%. Code 04888 -------- FINAL REPORT -------- Dictated By: Ronan Van Dictated Date: 05/06/2025 11:43 ET Assigned Physician: Ronan Van Reviewed and Electronically Signed By: Ronan Van Signed Date: 05/06/2025 11:44 ET Workstation ID: [id number] Transcribed By: Self Edit Transcribed Date: 05/06/2025 11:43 ET us Ely Travis MD IMG DXA PROCEDURES Final Resu lt * XR Paranasal Sinuses 3+ Views (05/05/2025 11:39 AM EDT) Anatomical Region Laterality Modality Head and Neck Radiographic Anita ging 05/05/2025 11:4 3 AM EDT Impressions 05/05/2025 11:44 AM EDT Normal radiographic examination of the paranasal sinuses. Code 16601 -------- FINAL REPORT -------- Dictated By: Ronan Van Dictated Date: 05/05/2025 11:43 ET Assigned Physician: Ronan Van Reviewed and Electronically Signed By: Ronan Van Signed Date: 05/05/2025 11:44 ET Workstation ID: [id number] Transcribed By: Self Edit Transcribed Date: 05/05/2025 11:43 ET Narrative 05/05/2025 11:44 AM EDT HISTORY: The patient is a 64-year-old female with clinical diagnosis of sinusitis. FINDINGS: Johnston, Villafana, lateral, and submental vertex views of the [...] radiographic examination of the paranasal sinuses. Code 00121 -------- FINAL REPORT -------- Dictated By: Ronan Van Dictated Date: 05/05/2025 11:43 ET Assigned Physician: Ronan Van Reviewed and Electronically Signed By: Ronan Van Signed Date: 05/05/2025 11:44 ET Workstation ID: [id number] Transcribed By: Self Edit Transcribed Date: 05/05/2025 11:43 ET us Georgia Gardner MD IMG XR PROCEDURES Final R esult from Last 3 Months Insurance [facility] Care Teams Industrial Registered Nurse Relationship Specialty Start Date End Date Ely Travis MD [address] [place] [phone] PCP - General Internal Medicine 10/12/24
--- OUTSIDE RECORDS SUMMARY | 2025-05-06 15:21 | XMS_ITS | Encounter Summary ---
Author Organization [employer] Address [address] [place] [address] [address] [address] Care Team Providers Care Polysomnography Technologist Name Role Phone Ely Travis MD Primary Care Provider [phone] Reason for Visit * Reason Comments Med Refill Encounter Details Date Type Department Care Team ([facility] Contact Info) Description 10/26/2024 Refill [facility] [address] [place], [place] [phone] Ely Travis MD [address] [place] [address] Social History Tobacco Use Types Packs/Day Years [...] documented as of this encounter Care Teams Polysomnography Technologist Relationship Specialty Start Date End Date Ely Travis MD [address] [place] [address] PCP - General Family Medicine 10/19/21 documented as of this encounter
--- OUTSIDE RECORDS SUMMARY | 2025-05-06 15:21 | XMS_ITS | Encounter Summary ---
Author Organization [employer] Address [address] [facility] [address] [address] Care Team Providers Care Knitting Machine Operator Automatic Name Role Phone Ely Travis MD Primary Care Provider [phone] Reason for Visit * Reason Onset Date Comments Nurse Triage 12/23/2023 Encounter Details Date Type Department Care Team ([facility] st Contact Info) Description 12/23/2023 Telephone [facility] [address] [place] [address] Ely Travis MD [address] [place] [phone] Nurse Triage Social History Tobacco Use Types [...] provider. Pt is advised to come to [facility] , open till 800pm tonight. Pt agrees [...] documented as of this encounter Care Teams Knitting Machine Operator Automatic Relationship Specialty Start Date End Date Ely Travis MD [address] [place] [phone] PCP - General Family Medicine 10/19/21 documented as of this encounter
--- OUTSIDE RECORDS SUMMARY | 2025-05-06 15:21 | XMS_ITS | Clinical Summary ---
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 for antibiotics that was sent from [...] Description 05/05/2025 9:15 AM EDT Office Visit [facility] [address] [place] [address] Georgia Gardner MD Benign paroxysmal positional vertigo, unspecified laterality (Primary Dx); Acute sinusitis with symptoms > 10 days 05/05/2025 Results Follow-Up [facility] [address] [place] [address] Georgia Gardner MD CBC auto differential, Basic Metabolic Panel 05/05/2025 Travel 05/04/2025 Travel 05/04/2025 Telephone [facility] [address] [place] [address] Ely Travis MD Nurse Triage 04/30/2025 Orders Only [facility] [address] [place] [address] Krystal Aguilar MD 04/08/2025 Telephone [facility] [address] [place] [address] Ely Travis MD Nurse Triage 03/16/2025 Telephone [facility] [address] [place] [address] Ely Travis MD Med Refill 03/16/2025 Orders Only [facility] [address] [place] [address] Ely Travis MD 03/15/2025 Results Follow-Up [facility] [address] [place] [address] Sravani Cyr RN POCT Glucose, POCT HGB A1C, Basic Metabolic Panel, Fasting, Additional followed-up results: 6 03/11/2025 10:00 AM EDT Office Visit [facility] [address] [place] [address] Ely Travis MD Prediabetes (Primary Dx); Current mild episode of major depressive disorder, unspecified whether recurrent (CMS/HCC); Dyslipidemia; Age-related osteoporosis without current pathological fracture; Breast cancer screening by mammogram; Seasonal allergic rhinitis due to other allergic trigger; Encounter for immunization; Heel pain, chronic, right 03/11/2025 Travel 03/10/2025 Telephone [facility] [address] [place] [address] Ely Travis MD Chart Prep from Last 3 Months Immunizations Immunization Administration [...] Vaccines (1 - Tdap) 1981 COVID-19 Vaccine ( season) 2025 06/23/2021, 06/02/2021 [...] Procedure Name Priority Date/Time Associated Diagnosis Comments BASIC METABOLIC PANEL Routine 05/05/2025 9:55 AM EDT Benign paroxysmal positional vertigo, unspecified laterality Acute sinusitis with symptoms > 10 days CBC WITH AUTO DIFFERENTIAL Routine 05/05/2025 9:55 AM EDT Benign paroxysmal positional vertigo, unspecified laterality Acute sinusitis with symptoms > 10 days XR PARANASAL SINUSES 3+ VIEWS Routine 05/05/2025 Acute sinusitis with symptoms > 10 days HM DIABETES EYE EXAM Routine 04/29/2025 10:38 [...] Recently Relevant to Health Maintenance Results * (ABNORMAL) CBC auto differential (05/05/2025 9:55 AM EDT) Only the most recent of2 resultswithin the time period is included. White Blood Count 5.7 4.8 - 10.8 X10*3/uL [facility] Red Blood Count 4.30 4.20 - 5.50 X10*6/uL [facility] Hemoglobin 14.0 12.0 - 16.0 g/dl [facility] Hematocrit 42.3 37.0 - 47.0 % [facility] Mean Corpuscular Volume 98.4(H) 80.0 - 98.0 fL [facility] Mean Corpuscular Hemoglobin 32.6 27.0 - 33.0 pg [facility] Mean Corpuscular HGB Conc 33.1 31.0 - 35.0 g/dl [facility] Red Cell Distribution Width 12.4 11.0 - 16.0 % [facility] Platelet Count 184 160 - 400 X10*3/uL [facility] Mean Platelet Volume 10.4 9.4 - 12.3 fL [facility] Neutrophils Percent Auto 68.6 45 - 73 % [facility] Imm Gran Pct Auto 0.2 0.0 - 0.4 % [facility] Lymphocytes Percent Auto 19.8(L) 20 - 40 % [facility] Monocytes Percent Auto 9.6 2 - 11 % [facility] Eosinophils Percent Auto 0.9 0 - 4 % [facility] Basophils Percent Auto 0.9 0 - 2 % [facility] NRBC Pct Auto 0.0 0.0 - 0.2 /100WBC [facility] Neutrophils Absolute Auto 3.9 2.0 - 8.3 x10*3/uL [facility] Imm Gran Abs Auto 0.01 0.00 - 0.03 X10*3/uL [facility] Lymphocytes Absolute Auto 1.1(L) 1.2 - 4.9 X10*3/uL [facility] Monocytes Absolute Auto 0.5 0.1 - 1.2 X10*3/uL [facility] Eosinophils Absolute Auto 0.1 0.0 - 0.4 X10*3/uL [facility] Basophils Absolute Auto 0.1 0.0 - 0.2 X10*3/uL [facility] NRBC Abs Auto 0.000 0.0 - 0.012 X10*3/uL [facility] Blood Venous blood specimen / Unknown 05/05/2025 9:55 AM EDT 05/05/2025 2:23 PM EDT us Georgia Gardner MD LAB BLOOD ORDERABLES Final Result [facility] [address] [place], [place] [phone] * (ABNORMAL) Basic Metabolic Panel (05/05/2025 9:55 AM EDT) Sodium 144 135 - 145 mmol/L [facility] Potassium 3.8 3.3 - 5.1 mmol/L [facility] Chloride 110(H) 96 - 108 mmol/L [facility] Carbon Dioxide 27 22 - 29 mmol/L [facility] Anion Gap 11(L) 12 - 20 [facility] Urea Nitrogen (BUN) 9 9 - 16 mg/dL [facility] Creatinine, Serum 0.61 0.5 - 1.4 mg/dL [facility] Estimated Glomerular Filt Rate >60 [facility] Comment:Chronic Kidney Disea se: Estimated GFR < 60 mL/min/1.00u5Hnxpvt Kidney Disease: Estimated GFR < 15 mL/min/1.73m2 Glucose 97 60 - 115 mg/dL [facility] Calcium 9.1 8.4 - 10.2 mg/dL [facility] Blood Venous blood specimen / Unknown 05/05/2025 9:55 AM EDT 05/05/2025 2:35 PM EDT us Georgia Gardner MD LAB BLOOD ORDERABLES Final Result [facility] [address] [place] [phone] [phone] * XR Paranasal Sinuess 3+ Views (05/05/2025) Anatomical Region Laterality Modality Head, Neck Radiographic Anita ging us Georgia Gardner MD IMG XR PROCEDURES Final Res ult * Hm Diabetes Eye Exam (04/29/2025 10:38 AM EDT) us Historical Provider HEALTH MAINTENANCE Final Result * (ABNORMAL) Basic Metabolic Panel, Fasting (03/12/2025 9:19 AM EDT) Sodium 143 135 - 145 mmol/L [facility] Potassium 3.9 3.3 - 5.1 mmol/L [facility] Chloride 110(H) 96 - 108 mmol/L [facility] Carbon Dioxide 27 22 - 29 mmol/L [facility] Anion Gap 10(L) 12 - 20 [facility] Urea Nitrogen (BUN) 13 9 - 16 mg/dL [facility] Creatinine, Serum 0.63 0.5 - 1.4 mg/dL [facility] Estimated Glomerular Filt Rate >60 [facility] Comment:Chronic Kidney Disea se: Estimated GFR < 60 mL/min/1.90z9Bxmreq Kidney Disease: Estimated GFR < 15 mL/min/1.73m2 Glucose Fasting 96 60 - 99 mg/dL [facility] Calcium 9.5 8.4 - 10.2 mg/dL [facility] Blood Venous blood specimen / Unknown 03/12/2025 9:19 AM EDT 03/12/2025 1:44 PM EDT Ely Travis MD LAB BLOOD ORDERABLES Final Re sult [facility] [address] [place] [phone] [phone] * Vitamin D, 25-Hydroxy, Total, Immunoassay (03/12/2025 9:19 AM EDT) Vitamin D 25-OH Total 88.0 >30 ng/mL [facility] Comment: Health Based Reference Values*< 20 ng/mL Cacirlbca47-82 ng/mL Insufficient> 30 ng/mL Sufficient*Helena AVERY. N [...] ORDERABLES Final Re sult Performing Organization Address [facility]/ZIP Co de Phone Number [facility] [address] [place] [address] [phone] * Vitamin B12/Folate, Serum Panel (03/12/2025 9:19 AM EDT) Vitamin B12 542 200 - 900 pg/mL [facility] Comment:NORMAL 200-900 PG/ML INDETERMINATE 160-199 PG/ML DEFICIENT < 160 PG/ML Folate 11.6 > or = 4.0 ng/mL [facility] Comment:Reference Values:> o r = [...] ORDERABLES Final Re sult Performing Organization Address [facility] Co de Phone Number [facility] [address] [place] [phone] * TSH W/Reflex to FT4 (03/12/2025 9:19 AM EDT) TSH reflex Free T4 1.22 0.32 - 4.0 uIU/mL [facility] Blood Venous blood specimen / Unknown 03/12/2025 9:19 AM EDT 03/12/2025 1:44 PM EDT Ely Travis MD LAB BLOOD ORDERABLES Final Re sult Performing Organization Address [facility]/ZIP Co de Phone Number [facility] [address] [place] [phone] * Hepatic Function Panel (03/12/2025 9:19 AM EDT) Bilirubin, Total 0.5 0.0 - 1.0 mg/dL [facility] Bilirubin, Direct 0.2 0.0 - 0.5 mg/dL [facility] Aspartate Amino Transferase 22 5 - 31 U/L [facility] Alanine Aminotransferase 20 0 - 31 U/L [facility] Total Protein 6.7 6.5 - 8.0 g/dL [facility] Albumin Level 4.5 3.5 - 5.0 g/dL [facility] Alkaline Phosphatase 64 39 - 117 U/L [facility] Blood Venous blood specimen / Unknown 03/12/2025 9:19 AM EDT 03/12/2025 1:44 PM EDT us Ely Travis MD LAB BLOOD ORDERABLES Final Re sult [facility] [address] [place] [phone] * Lipid Panel, Standard (03/12/2025 9:19 AM EDT) Pathologist [facility] Triglycerides 87 <150 mg/dL [facility] Comment:Desirable Triglyceri de: less than 150 mg/dLBorderline High Triglyceride 150-199 mg/dLHigh Triglyceride: 200-499 mg/dLVery High Triglyceride: greater than or equal to 5OO mg/dL Cholesterol 125 <200 mg/dL [facility] Comment:Desirable Cholestero l: less than 200 mg/dLBorderline High Cholesterol: 200-239 mg/dLHigh Cholesterol: greater than 239 mg/dL LDL Cholesterol Calculated 60 <100 mg/dL [facility] Comment:Desirable LDL: less than 100 mg/dLNear Optimal/Above Optimal LDL: 110- 129 mg/dLBorderline High LDL: 130-159 mg/dLHigh LDL: 160-189 mg/dLVery High LDL: greater than or equal to 190 mg/dL HDL Cholesterol 48 >40 mg/dL [facility] Comment:Desirable HDL: great er than 40 mg/dL Note: This HDL assay may give artificially low results in patients with liver disease. Blood Venous blood specimen / Unknown 03/12/2025 9:19 AM EDT 03/12/2025 1:44 PM EDT Result Dianne Travis MD LAB BLOOD ORDERABLES Final Re sult [facility] [address] [place] [phone] * POCT Glucose (03/11/2025 10:11 AM EDT) Glucose Blood, POC 123 60 - 200 mg/dL QC Media Lot # [id number] Lot# Expiration Date 025 Blood Capillary blood specimen / Unknown 03/11/2025 10:11 AM EDT Result Dianne Travis MD POINT OF CARE TEST ENTER/EDIT ORDERABLES Final Result * (ABNORMAL) POCT HGB A1C (03/11/2025 10:10 AM EDT) Hemoglobin A1C 6.4(A) 4.0 - 5.7 % QC Media Lot # [id number] Lot# Expiration Date Blood 03/11/2025 10:1 0 AM EDT us Ely Travis MD POINT OF CARE TEST ENTER/EDIT ORDERABLES Final Result * BI US Breast Complete Right (10/12/2024) Anatomical Region Laterality Modality Breast Right Ultrasound us Ely Travis MD IMG US PROCEDURES Final Resul t * (ABNORMAL) Hepatitis Panel, General (09/06/2022 8:15 AM EST) Hepatitis A Antibody Total REACTIVE( A) NON-REACT [facility] Comment: For additional information, please refer to http://education.KPA/faq/YVP389 (This link is being provided for informational/ educational purposes only.) Hepatitis B Surface Antibody QL NON-REACT KATIE NON-REACT [facility] Hepatitis B Surface Ag NON-REACT KATIE NON-REACT K[facility] Hepatitis B Core Antibody Total NON-REACT KATIE NON-REACT K[facility] Hepatitis C Antibody NON-REACT KATIE NON-REACT KATIE [facility] [place] [facility]GEN Index <0.02 <1.00 [facility] [place] [facility]GEN Comment: HCV antibody was non-reactive. There is no laboratory evidence of HCV infection. In most cases, no further action is required. However, if recent HCV exposure is suspected, a test for HCV RNA (test code 17809) is suggested. For additional information please refer to http://education.KPA/faq/WME46r0 (This link is being provided for informational/ educational purposes only.) 09/06/2022 8:15 AM EST 09/06/2022 8:16 AM EST Narrative [facility] - 09/07/2022 1:58 PM EST FASTING:YES FASTING: YES us Ely Travis MD LAB BLOOD ORDERABLES Final Re sult [facility] [address] [facility], [place] [address] [facility] [place] [facility]GEN [address] [facility], ([address]) [place] [phone] * THINPREP TIS PAP AND HPV mRNA E6/E7 WITH REFLEX TO HPV 16,18/45 (01/17/2022 12:15 PM EDT) Clinical Information: None given [facility] COMMENT SEE COMMENT [facility]OUNDAT[facility] ON [...] has been evaluated with computer assisted technology. [facility] Client Application Support Engineer: SEE COMMENT [facility] Comment: SXA, CT(ASCP) CT screening location: [address] [address] HPV nRNA E6/E7 Not Detected Not Detected [facility] Comment: Methodology: Portable Machine Cutter-Mediated Amplification This assay detects E6/E7 viral messenger RNA (mRNA) from 14 high-risk HPV types (16,18,31,33,35,39,45,51,52,56,58,59,66,68). The analytical performance characteristics of this assay have been determined by [facility]. The modifications have not been cleared or approved by the FDA. This assay has been validated pursuant to the CLIA regulations and is used for clinical purposes. For additional information, please refer to http://education.KPA/faq/BMG782s8 (This link if provided for information/ educational purposes only.) Interpretation/Res ult: SEE COMMENT [facility] Comment: Negative for intraepithelial lesion or malignancy. Atrophic pattern; predominantly parabasal cells LMP: 50 YRS [facility] Prev. BX: NONE GIVEN [facility]OUNDATIO N LAB SYSTEM Prev. PAP: NONE GIVEN FOUNDAT[facility] ON LAB SYSTEM SOURCE: Cervix [facility] Statement Of Adequacy: SATISFACTORY FOR EVALUATION [facility] 01/17/2022 12:1 5 PM EDT us Ely Travis MD LAB PATHOLOGY ORDERABLES Mara varner Result [facility] [address] from Last 3 Months or Most Recently Relevant to Health Maintenance Insurance BCBS OUT OF STATE Care Teams Machine Plate Stacker Relationship Specialty Start Date End Date Ely Travis MD [address] [place] [phone] PCP - General Family Medicine 10/19/21
--- OUTSIDE RECORDS SUMMARY | 2025-05-06 15:21 | XMS_ITS | Encounter Summary ---
Author Organization [employer] Address [address] [place] [address] [address] [place] [address] Care Team Providers Care Pharmacovigilance Safety Expert Name Role Phone Ely Travis MD Primary Care Provider [phone] Encounter Details Date Type Department Care Team ([facility] st Contact Info) Description 04/10/2024 Orders Only [facility] [address] [place] [address] Provider, MD Krystal Social History Tobacco Use [...] documented as of this encounter Care Teams Pharmacovigilance Safety Expert Relationship Specialty Start Date End Date Ely Travis MD [address] [place] [address] PCP - General Family Medicine 10/19/21 documented as of this encounter
--- OUTSIDE RECORDS SUMMARY | 2025-05-06 15:21 | XMS_ITS | Encounter Summary ---
Author Organization [employer] Address [address] [place] [address] 7t [place] [address] Care Team Providers Care Green Marketer Name Role Phone Ely Travis MD Primary Care Provider [phone] Encounter Details Date Type Department Care Team ([facility] st Contact Info) Description 04/08/2024 Orders Only [facility] [address] [place] [address] Provider, MD Krystal Social History Tobacco Use [...] documented as of this encounter Care Teams Green Marketer Relationship Specialty Start Date End Date Ely Travis MD [address] [place] [address] PCP - General Family Medicine 10/19/21 documented as of this encounter
--- OUTSIDE RECORDS SUMMARY | 2025-05-06 15:21 | XMS_ITS | Encounter Summary ---
Author Organization [employer] Address [address] [place] [address] [place], [place] [address] Care Team Providers Care Die Try Out Worker Stamping Name Role Phone Ely Travis MD Primary Care Provider [phone] Reason for Visit * Reason Onset Date Comments Letter for School/Work 10/04/2023 Encounter Details Date Type Department Care Team ([facility] Contact Info) Description 10/04/2023 Telephone [facility] [address] [place], [place] [phone] Ely Travis MD [address] [place] [address] Letter for School/Work Social History Tobacco Use [...] encounter Miscellaneous Notes * Telephone Encounter - Heeln Wasserman - 10/04/2023 8:51 AM EST Tc [...] as of this encounter Care Teams Die Try Out Worker Stamping Relationship Specialty Start Date End Date Ely Travis MD [address] [place] [address] PCP - General Family Medicine 10/19/21 documented as of this encounter
--- OUTSIDE RECORDS SUMMARY | 2025-05-06 15:21 | XMS_ITS | Encounter Summary ---
Author Organization [email or web address] Address [address] [facility] 7t [place] [address] Care Team Providers Care Jump Iron Machine Presser Name Role Phone Ely Travis MD Primary Care Provider [phone] Encounter Details Date Type Department Care Team [...] documented as of this encounter Care Teams Jump Iron Machine Presser Relationship Specialty Start Date End Date Ely Travis MD [address] [place] [address] PCP - General Family Medicine 10/19/21 documented as of this encounter
--- OUTSIDE RECORDS SUMMARY | 2025-05-06 15:21 | XMS_ITS | Encounter Summary ---
Author Organization [employer] Address [address] [place] [address] 7t [place] [address] Care Team Providers Care Social Work Specialist Name Role Phone Ely Travis MD Primary Care Provider [phone] Reason for Visit * Reason Comments Med Refill Encounter Details Date Type Department Care Team ([facility] st Contact Info) Description 02/02/2025 Refill [facility] [address] [place] [address] Daja Knox MD [address] [place] [address] Social History Tobacco Use Types Packs/Day Years [...] documented as of this encounter Care Teams Social Work Specialist Relationship Specialty Start Date End Date Ely Travis MD [address] [place] [address] PCP - General Family Medicine 10/19/21 documented as of this encounter
--- OUTSIDE RECORDS SUMMARY | 2025-05-06 15:21 | XMS_ITS | Encounter Summary ---
Author Organization [employer] Address [address] [facility] [address] [place] [address] Care Team Providers Care Bilingual Inside Sales Representative Name Role Phone Ely Travis MD Primary Care Provider [phone] Reason for Visit * Reason Onset Date Comments Nurse Triage 05/04/2025 Encounter Details Date Type Department Care Team ([facility] st Contact Info) Description 05/04/2025 Telephone [facility] [address] [place], [place] [phone] Ely Travis MD [address] [place] [address] Nurse Triage Social History Tobacco Use Types [...] is your housing situation today? I have rcaquel christianne 03/11/[address] you [...] other associated symptoms. given appt tomorrow with [facility] provider at 9:15 for exam. advised home [...] caller accepted this outcome. Contact pt at [phone] documented in this encounter Plan of Treatment Not on file documented as of this encounter Visit Diagnoses Not on filedocumented in this encounter Additional Health Concerns Assessment Noted Time PHQ-9 Depression Total Score: 4 03/11/20 25 10:08 AM EDT documented as of this encounter Care Teams Bilingual Inside Sales Representative Relationship Specialty Start Date End Date Ely Travis MD [address] [place] [address] PCP - General Family Medicine 10/19/21 documented as of this encounter
--- OUTSIDE RECORDS SUMMARY | 2025-05-06 15:21 | XMS_ITS | Encounter Summary ---
Author Organization [employer] Address [address] [place] [address] Care Team Providers Care Spar Machine Operator Name Role Phone Ely Travis MD Primary Care Provider [phone] Reason for Visit * Reason Onset Date Comments Results 08/21/2022 Encounter Details Date Type Department Care Team ([facility] st Contact Info) Description 08/21/2022 Telephone [facility] [address] [place], [place] [phone] Ely Travis MD [address] [place] [address] Results Social History Tobacco Use Types Packs/Day [...] on filedocumented in this encounter Care Teams Spar Machine Operator Relationship Specialty Start Date End Date Ely Travis MD [address] [place] [address] PCP - General Family Medicine 10/19/21 documented as of this encounter
--- OUTSIDE RECORDS SUMMARY | 2025-05-06 15:21 | XMS_ITS | Encounter Summary ---
Author Organization [employer] Address [address] [place] [address] 7 [place] [address] Care Team Providers Care Associate Faculty Name Role Phone Ely Travis MD Primary Care Provider [phone] Encounter Details Date Type Department Care Team ([facility] st Contact Info) Description 10/16/2023 Orders Only [facility]S [address] [place], [place] [phone] Georgia Gardner MD [address] [place] [address] Social History Tobacco Use Types Packs/Day Years [...] as of this encounter Care Teams Associate Faculty Relationship Specialty Start Date End Date Ely Travis MD [address] [place] [address] PCP - General Family Medicine 10/19/21 documented as of this encounter
--- OUTSIDE RECORDS SUMMARY | 2025-05-06 15:21 | XMS_ITS | Encounter Summary ---
Author Organization [employer] Address [address] [facility] 7t [place] [address] Care Team Providers Care Assisted Living Housekeeper Name Role Phone Ely Tarvis MD Primary Care Provider [phone] Encounter Details Date Type Department Care Team [...] documented as of this encounter Care Teams Assisted Living Housekeeper Relationship Specialty Start Date End Date Ely Travis MD [address] [place] [address] PCP - General Family Medicine 10/19/21 documented as of this encounter
--- OUTSIDE RECORDS SUMMARY | 2025-05-06 15:21 | XMS_ITS | Encounter Summary ---
Author Organization [employer] Address [address] [place] [address] 7 [place] [address] Care Team Providers Care Parish Visitor Name Role Phone Ely Travis MD Primary Care Provider [phone] Reason for Visit * Reason Onset Date Comments Nurse Triage 02/20/2023 Encounter Details Date Type Department Care Team ([facility] st Contact Info) Description 02/20/2023 Telephone [facility] [address] [place], [place] [phone] Ely Travis MD [address] [place] [address] Nurse Triage Social History Tobacco Use Types [...] documented as of this encounter Care Teams Parish Visitor Relationship Specialty Start Date End Date Ely rTavis MD [address] [place] [address] PCP - General Family Medicine 10/19/21 documented as of this encounter
--- OUTSIDE RECORDS SUMMARY | 2025-05-06 15:21 | XMS_ITS | Encounter Summary ---
Author Organization [employer] Address [address] [place] [address] Care Team Providers Care Telephone Mechanic Name Role Phone Ely Travis MD Primary Care Provider [phone] Encounter Details Date Type Department Care Team ([facility] st Contact Info) Description 04/30/2025 Orders Only [facility] [address] [place], [place] [id number] Provider, MD Krystal Social History Tobacco Use [...] documented as of this encounter Care Teams Telephone Mechanic Relationship Specialty Start Date End Date Ely Travis MD [address] [place] [address] PCP - General Family Medicine 10/19/21 documented as of this encounter
[2025-05-06 15:43] LABS: Folate 10.6 ng/mL (> or = 4.0); Vitamin B12 463 pg/mL (200-900)
== END 2025-05-06 11:03 | disposition home or self-care (01) ==
LOC: HO.CHCLDS 11:02
PROVIDERS: Visit Provider Internal Medicine
DX: D75.89 Other specified diseases of blood and blood-forming organs (principal)
CPT/HCPCS: 36415; 82607; 82746